=== PATIENT | female | born 1940 | race Two or more races ===

== ENCOUNTER 2018-02-27 21:00 | Inpatient (IN) | payer BC ==
[~2018-02-27] VITALS: Ht 149.9 cm; Wt 41.3 kg
[2018-02-27 21:55] LABS: Basophils # (auto) 0 uL; Basophils % (auto) 0.7 % (0.0-2.0); Eosinophils # (auto) 0.1 uL; Eosinophils % (auto) 1.2 % (0.0-7.0); Hematocrit 30.6 % (36.0-46.0); Hemoglobin 10.2 g/dL (12.2-16.2); Lymphocytes # (auto) 0.9 uL; Lymphocytes % (auto) 14.8 % (10.0-50.0); Mean Corpuscular Hgb Conc. 33.4 g/dL (32.0-36.0); Monocytes # (auto) 0.7 uL; Monocytes % (auto) 10.8 % (0.0-12.0); Neutrophils # (auto) 4.4 uL; Neutrophils % (auto) 72.5 % (37.0-80.0); Platelet Count (auto) 289 10^3/uL (140-450); Red Blood Cells 3.29 10^6/uL (4.0-5.20); Red Cell Distribution Width 15.5 % (11.8-14.3); White Blood Cell 6.1 10^3/uL (4.4-10.8)
[2018-02-27 22:18] LABS: Alkaline Phosphatase 85 U/L (45-117); Bilirubin, Total 0.6 mg/dL (0.2-1.0); INR 1.14 (0.9-1.15); Partial Thromboplastin Time 35.5 sec (23.78-33.04); Prothrombin Time 12.1 sec (9.27-12.13); Total Protein 6.5 g/dL (6.4-8.2)
[2018-02-27] MEDS ORDERED: LEVOFLOXACIN 500MG 100 ML IV ONE (23:00)
[2018-02-27 23:41] LABS: Chloride 105 mmol/L (98-107); Potassium 3.5 mmol/L (3.5-5.1); Sodium 140 mmol/L (136-145)
[2018-02-27 23:42] LABS: Alanine Aminotransferase 16 U/L (13-56); Albumin 2.6 g/dL (3.4-5.0); Anion Gap 9 (5-15); Aspartate Aminotransferase 20 U/L (15-37); BUN/Creatinine Ratio 18.3; Blood Urea Nitrogen 13 mg/dL (7-18); Calcium 7.7 mg/dL (8.5-10.1); Carbon Dioxide 26 mmol/L (21-32); GFR African American 103 mL/min; GFR Non-African American 85 mL/min; Glucose 125 mg/dL (74-106); Magnesium 1.8 mg/dL (1.6-2.6)
[2018-02-28] MEDS ORDERED: FUROSEMIDE 20 MG/2 ML VIAL IV ONE (02:45)
[2018-02-28] MEDS ORDERED: ONDANSETRON HCL 4 MG/2 ML VIAL IV PRN (03:00)
[2018-02-28] MEDS ORDERED: TEMAZEPAM 15 MG CAP PO PRN (03:00)
[2018-02-28] MEDS ORDERED: NITROGLYCERIN 0.4 MG SL TAB SL PRN (03:00)
[2018-02-28] MEDS ORDERED: MORPHINE SULF INJ 2 MG/ML SYRINGE 1ML IV PRN (03:00)
[2018-02-28] MEDS ORDERED: ALBUTEROL SULF 2.5 MG/0.5ML(0.5%) NEB SOLN NEB PRN (03:00)
[2018-02-28] MEDS ORDERED: CALCIUM GLUC 4.65meq/50ml D5AE 50 ML IV ONE (03:00)
[2018-02-28] MEDS ORDERED: guaiFENesin-DM 100/10mg/5ml SYR PO PRN (04:00)
[2018-02-28 06:54] VITALS: BP 150/61
[2018-02-28 07:40] LABS: Urine Bacteria MANY /hpf (None Seen); Urine Blood TRACE /uL (Negative); Urine Mucus FEW (None Seen); Urine Specific Gravity 1.022 (1.001-1.035); Urine WBC 7 /hpf (0 - 5)
[2018-02-28] MEDS ORDERED: LORA-654 PO (08:55)
[2018-02-28] MEDS ORDERED: FAMO-12 PO (08:55)
[2018-02-28] MEDS ORDERED: PROM1SYP4 PO (08:55)
[2018-02-28] MEDS ORDERED: APIX5TAB PO (08:55)
[2018-02-28] MEDS ORDERED: FURO40TA4 PO (08:55)
[2018-02-28] MEDS ORDERED: DILT60TA27 PO (08:55)
[2018-02-28] MEDS ORDERED: ATO40T PO (08:55)
[2018-02-28] MEDS ORDERED: ALEN70TA2 PO (08:55)
[2018-02-28] MEDS ORDERED: FLUT230A2 IN (08:55)
[2018-02-28] MEDS ORDERED: POTA10TA51 PO (08:55)
[2018-02-28] MEDS ORDERED: DOCU-94 PO (08:55)
[2018-02-28] MEDS ORDERED: ENOXAPARIN SOD 40 MG/0.4 ML SYRINGE SC SCH (10:00)
[2018-02-28] MEDS: FAMOTIDINE 20 MG TAB PO SCH ×2 (10:47→21:10)
[2018-02-28] MEDS: FUROSEMIDE 40 MG TAB PO SCH (10:52)
[2018-02-28 10:55] VITALS: BP 127/46
[2018-02-28] MEDS ORDERED: methylPREDNISolone SOD SUCC 40 MG/ML VL IV ONE (11:15)
[2018-02-28] MEDS ORDERED: cefTRIAXone 1GM/10ml IVPUSH 10 ML IV ONE (11:15)
[2018-02-28] MEDS ORDERED: IPRATROPIUM BROM 0.5 MG/2.5ML INH SOL ONE (11:36)
[2018-02-28] MEDS ORDERED: ALBUTEROL SULF 2.5 MG/0.5ML(0.5%) NEB SOLN ONE (11:36)
[2018-02-28] MEDS: IPRATROPIUM BROM 0.5 MG/2.5ML INH SOL NEB SCH ×2 (12:00→18:20)
[2018-02-28] MEDS: ALBUTEROL SULF 2.5 MG/0.5ML(0.5%) NEB SOLN NEB SCH ×2 (12:00→18:20)
[2018-02-28] MEDS ORDERED: AZITHROMYCIN 500MG/ 250ML 250 ML IV ONE (12:15)
[2018-02-28] MEDS: PROMETHAZINE W/CODEINE 5 ML ORAL SYRUP PO PRN ×2 (13:46→17:49)
[2018-02-28 16:56] VITALS: BP 134/68
[2018-02-28] MEDS: BUDESONIDE (INHALATION) 0.5 MG/2 ML NEB NEB SCH (18:21)
[2018-02-28] MEDS: APIXABAN 5 MG TAB PO SCH (21:09)
[2018-02-28] MEDS: ATORVASTATIN 20 MG TAB PO SCH (21:09)
[2018-02-28] MEDS: methylPREDNISolone SOD SUCC 40 MG/ML VL IV SCH (21:09)
[2018-02-28 21:56] VITALS: BP 139/82
[2018-03-01] MEDS: IPRATROPIUM BROM 0.5 MG/2.5ML INH SOL NEB SCH ×5 (00:23→23:06)
[2018-03-01] MEDS: ALBUTEROL SULF 2.5 MG/0.5ML(0.5%) NEB SOLN NEB SCH ×5 (00:23→23:06)
[2018-03-01 04:43] VITALS: BP 117/54
[2018-03-01] MEDS: BUDESONIDE (INHALATION) 0.5 MG/2 ML NEB NEB SCH ×2 (06:20→19:34)
[2018-03-01 07:21] LABS: Basophils # (auto) 0 uL; Basophils % (auto) 0.1 % (0.0-2.0); Eosinophils # (auto) 0 uL; Hematocrit 29.5 % (36.0-46.0); Hemoglobin 9.9 g/dL (12.2-16.2); Lymphocytes # (auto) 0.6 uL; Lymphocytes % (auto) 14.1 % (10.0-50.0); Mean Corpuscular Hemoglobin 30.5 pg (28.0-32.0); Mean Corpuscular Hgb Conc. 33.5 g/dL (32.0-36.0); Mean Corpuscular Volume 91.3 fL (80.0-100.0); Monocytes # (auto) 0.2 uL; Monocytes % (auto) 4.4 % (0.0-12.0); Neutrophils # (auto) 3.3 uL; Neutrophils % (auto) 81.4 % (37.0-80.0); Nucleated Red Blood Cells % 0.1 %; Platelet Count (auto) 291 10^3/uL (140-450); Red Blood Cells 3.23 10^6/uL (4.0-5.20); Red Cell Distribution Width 15.3 % (11.8-14.3); White Blood Cell 4.1 10^3/uL (4.4-10.8)
[2018-03-01 07:31] LABS: Potassium 3.4 mmol/L (3.5-5.1)
[2018-03-01 07:38] LABS: Albumin 2.3 g/dL (3.4-5.0); BUN/Creatinine Ratio 26.2; Calcium 8.5 mg/dL (8.5-10.1)
[2018-03-01 07:41] LABS: Bilirubin, Total 0.4 mg/dL (0.2-1.0); Total Protein 6.3 g/dL (6.4-8.2)
[2018-03-01 08:00] VITALS: BP 127/46
[2018-03-01 09:00] VITALS: BP 123/51
[2018-03-01] MEDS ORDERED: LEVOFLOXACIN 750MG 150 ML IV SCH (10:00)
[2018-03-01] MEDS: APIXABAN 5 MG TAB PO SCH ×2 (10:01→21:30)
[2018-03-01] MEDS: cefTRIAXone 1GM/10ml IVPUSH 10 ML IV SCH (10:02)
[2018-03-01] MEDS: AZITHROMYCIN 500MG/ 250ML 250 ML IV SCH (10:03)
[2018-03-01] MEDS: FUROSEMIDE 40 MG TAB PO SCH (10:03)
[2018-03-01] MEDS: methylPREDNISolone SOD SUCC 40 MG/ML VL IV SCH ×2 (10:03→21:30)
[2018-03-01] MEDS: PROMETHAZINE W/CODEINE 5 ML ORAL SYRUP PO PRN ×2 (10:04→21:30)
[2018-03-01] MEDS: FAMOTIDINE 20 MG TAB PO SCH ×2 (10:04→21:30)
[2018-03-01] MEDS ORDERED: POTASSIUM EFFERVESENT TAB 25 MEQ PO ONE (11:00)
[2018-03-01] MEDS ORDERED: FUROSEMIDE 20 MG/2 ML VIAL IV ONE (11:00)
[2018-03-01 13:00] VITALS: BP 126/54
[2018-03-01 17:00] VITALS: BP 120/50
[2018-03-01] MEDS: diphenhdrAMINE HCL 25 MG CAP PO PRN ×2 (17:03→17:05)
[2018-03-01] MEDS: ACETAMINOPHEN 325 MG TAB PO PRN (21:30)
[2018-03-01] MEDS: ATORVASTATIN 20 MG TAB PO SCH (21:30)
[2018-03-01 21:49] VITALS: BP 129/76
[2018-03-02] MEDS ORDERED: LORazepam 0.5 MG TAB PO PRN (00:45)
[2018-03-02] MEDS: PROMETHAZINE W/CODEINE 5 ML ORAL SYRUP PO PRN ×5 (01:40→22:37)
[2018-03-02 05:05] VITALS: BP 102/55
[2018-03-02] MEDS: IPRATROPIUM BROM 0.5 MG/2.5ML INH SOL NEB SCH ×3 (06:00→19:25)
[2018-03-02] MEDS: ALBUTEROL SULF 2.5 MG/0.5ML(0.5%) NEB SOLN NEB SCH ×3 (06:00→19:25)
[2018-03-02 07:00] LABS: BUN/Creatinine Ratio 22.2; Calcium 7.9 mg/dL (8.5-10.1); Potassium 3.9 mmol/L (3.5-5.1)
[2018-03-02 08:00] VITALS: BP 139/69
[2018-03-02] MEDS: cefTRIAXone 1GM/10ml IVPUSH 10 ML IV SCH (08:26)
[2018-03-02] MEDS: methylPREDNISolone SOD SUCC 40 MG/ML VL IV SCH ×2 (08:28→21:37)
[2018-03-02] MEDS: ACETAMINOPHEN 325 MG TAB PO PRN (08:29)
[2018-03-02] MEDS: APIXABAN 5 MG TAB PO SCH ×2 (08:29→21:36)
[2018-03-02] MEDS: AZITHROMYCIN 500MG/ 250ML 250 ML IV SCH (08:29)
[2018-03-02] MEDS: FUROSEMIDE 40 MG TAB PO SCH (08:30)
[2018-03-02] MEDS: FAMOTIDINE 20 MG TAB PO SCH ×2 (08:30→21:36)
[2018-03-02 08:38] VITALS: BP 139/69
[2018-03-02] MEDS: BUDESONIDE (INHALATION) 0.5 MG/2 ML NEB NEB SCH ×2 (11:35→19:25)
[2018-03-02 13:00] VITALS: BP 140/63
[2018-03-02] MEDS ORDERED: ACETAMINOPHEN 325 MG TAB PO PRN (16:15)
[2018-03-02 16:56] VITALS: BP 119/59
[2018-03-02 17:03] LABS: Urine Bacteria NONE SEEN /hpf (None Seen); Urine Blood Negative /uL (Negative); Urine Specific Gravity 1.005 (1.001-1.035); Urine WBC 1 /hpf (0 - 5)
[2018-03-02] MEDS: ATORVASTATIN 20 MG TAB PO SCH (21:36)
[2018-03-02 21:37] VITALS: BP 154/68
[2018-03-03] MEDS: IPRATROPIUM BROM 0.5 MG/2.5ML INH SOL NEB SCH ×4 (00:30→18:44)
[2018-03-03] MEDS: ALBUTEROL SULF 2.5 MG/0.5ML(0.5%) NEB SOLN NEB SCH ×4 (00:30→18:44)
[2018-03-03] MEDS: HYDROcodone-ACET 5/325MG TAB PO PRN ×3 (02:15→14:49)
[2018-03-03 05:06] VITALS: BP 132/77
[2018-03-03] MEDS: BUDESONIDE (INHALATION) 0.5 MG/2 ML NEB NEB SCH ×2 (06:21→18:45)
[2018-03-03] MEDS: PROMETHAZINE W/CODEINE 5 ML ORAL SYRUP PO PRN ×4 (06:22→21:45)
[2018-03-03 06:27] VITALS: BP 132/77
[2018-03-03 06:43] LABS: Basophils # (auto) 0 uL; Basophils % (auto) 0.1 % (0.0-2.0); Eosinophils # (auto) 0 uL; Hematocrit 27.7 % (36.0-46.0); Hemoglobin 9.4 g/dL (12.2-16.2); Lymphocytes # (auto) 0.4 uL; Lymphocytes % (auto) 4.2 % (10.0-50.0); Mean Corpuscular Hemoglobin 30.9 pg (28.0-32.0); Mean Corpuscular Hgb Conc. 33.8 g/dL (32.0-36.0); Mean Corpuscular Volume 91.2 fL (80.0-100.0); Monocytes # (auto) 0.4 uL; Monocytes % (auto) 4.6 % (0.0-12.0); Neutrophils # (auto) 8.2 uL; Neutrophils % (auto) 91.1 % (37.0-80.0); Platelet Count (auto) 345 10^3/uL (140-450); Red Blood Cells 3.04 10^6/uL (4.0-5.20); Red Cell Distribution Width 15.1 % (11.8-14.3)
[2018-03-03 06:55] LABS: BUN/Creatinine Ratio 20.8; Calcium 7.8 mg/dL (8.5-10.1); Potassium 3.7 mmol/L (3.5-5.1)
[2018-03-03 09:00] VITALS: BP 144/72
[2018-03-03] MEDS: APIXABAN 5 MG TAB PO SCH ×2 (09:35→21:44)
[2018-03-03] MEDS: FUROSEMIDE 40 MG TAB PO SCH (09:35)
[2018-03-03] MEDS: FAMOTIDINE 20 MG TAB PO SCH ×2 (09:35→21:45)
[2018-03-03] MEDS: methylPREDNISolone SOD SUCC 40 MG/ML VL IV SCH ×2 (09:35→21:44)
[2018-03-03] MEDS: AZITHROMYCIN 500MG/ 250ML 250 ML IV SCH (09:35)
[2018-03-03] MEDS: cefTRIAXone 1GM/10ml IVPUSH 10 ML IV SCH (09:36)
[2018-03-03 13:00] VITALS: BP 149/66
[2018-03-03 17:00] VITALS: BP 153/60
[2018-03-03 20:05] VITALS: BP 142/72
[2018-03-03] MEDS: ATORVASTATIN 20 MG TAB PO SCH (21:44)
[2018-03-04] VITALS (7 sets, daily range): BP systolic 111–146; BP diastolic 31–96
[2018-03-04] MEDS: ALBUTEROL SULF 2.5 MG/0.5ML(0.5%) NEB SOLN NEB SCH ×4 (00:37→18:54)
[2018-03-04] MEDS: IPRATROPIUM BROM 0.5 MG/2.5ML INH SOL NEB SCH ×4 (00:37→18:54)
[2018-03-04] MEDS ORDERED: LORazepam 2MG/ML-1ML VIAL IV PRN (01:15)
[2018-03-04] MEDS: PROMETHAZINE W/CODEINE 5 ML ORAL SYRUP PO PRN ×2 (02:08→14:31)
[2018-03-04] MEDS ORDERED: IOHEXOL 300 MG/ML 100ML BOTTLE IJ ONE (09:05)
[2018-03-04] MEDS: BUDESONIDE (INHALATION) 0.5 MG/2 ML NEB NEB SCH ×2 (10:00→18:54)
[2018-03-04] MEDS: cefTRIAXone 1GM/10ml IVPUSH 10 ML IV SCH (10:24)
[2018-03-04] MEDS: APIXABAN 5 MG TAB PO SCH ×2 (10:25→20:20)
[2018-03-04] MEDS: FUROSEMIDE 40 MG TAB PO SCH (10:25)
[2018-03-04] MEDS: methylPREDNISolone SOD SUCC 40 MG/ML VL IV SCH ×2 (10:25→20:20)
[2018-03-04] MEDS: FAMOTIDINE 20 MG TAB PO SCH ×2 (10:25→20:20)
[2018-03-04] MEDS ORDERED: VANCOMYCIN PER PHARMACY 0 MG IV SCH (11:15)
[2018-03-04] MEDS: PIPERACILLIN-TAZOB 3.375GM 100 ML IV SCH ×2 (11:49→20:21)
[2018-03-04] MEDS: LORazepam 2MG/ML-1ML VIAL IV PRN (13:12)
[2018-03-04] MEDS: VANCOMYCIN 500 MG in D5W 5% 100 ML IV SCH (14:31)
[2018-03-04] MEDS: ATORVASTATIN 20 MG TAB PO SCH (20:21)
[2018-03-05] VITALS (7 sets, daily range): BP systolic 107–138; BP diastolic 60–87
[2018-03-05] MEDS: LORazepam 2MG/ML-1ML VIAL IV PRN (00:15)
[2018-03-05] MEDS: ALBUTEROL SULF 2.5 MG/0.5ML(0.5%) NEB SOLN NEB SCH ×4 (00:34→18:31)
[2018-03-05] MEDS: IPRATROPIUM BROM 0.5 MG/2.5ML INH SOL NEB SCH ×4 (00:34→18:31)
[2018-03-05] MEDS: PROMETHAZINE W/CODEINE 5 ML ORAL SYRUP PO PRN ×2 (02:48→10:49)
[2018-03-05] MEDS: PIPERACILLIN-TAZOB 3.375GM 100 ML IV SCH ×3 (03:48→20:17)
[2018-03-05] MEDS: BUDESONIDE (INHALATION) 0.5 MG/2 ML NEB NEB SCH ×2 (06:07→21:10)
[2018-03-05] MEDS: FUROSEMIDE 40 MG TAB PO SCH (09:46)
[2018-03-05] MEDS: methylPREDNISolone SOD SUCC 40 MG/ML VL IV SCH ×2 (09:46→22:07)
[2018-03-05] MEDS: FAMOTIDINE 20 MG TAB PO SCH ×2 (09:46→22:08)
[2018-03-05] MEDS: APIXABAN 5 MG TAB PO SCH ×2 (09:46→22:07)
[2018-03-05] MEDS: ALPRAZolam 0.25 MG TAB PO SCH ×2 (10:55→22:08)
[2018-03-05] MEDS: guaiFENesin 200 MG/10 ML UD PO SCH ×3 (11:59→22:11)
[2018-03-05] MEDS: VANCOMYCIN 500 MG in D5W 5% 100 ML IV SCH (17:04)
[2018-03-05] MEDS: ATORVASTATIN 20 MG TAB PO SCH (22:10)
[2018-03-06 03:44] VITALS: BP 128/71
[2018-03-06] MEDS: PIPERACILLIN-TAZOB 3.375GM 100 ML IV SCH ×3 (04:10→20:18)
[2018-03-06 05:58] LABS: Basophils # (auto) 0 uL; Basophils % (auto) 0.1 % (0.0-2.0); Eosinophils # (auto) 0 uL; Hematocrit 28.3 % (36.0-46.0); Hemoglobin 9.8 g/dL (12.2-16.2); Lymphocytes # (auto) 0.4 uL; Lymphocytes % (auto) 4.5 % (10.0-50.0); Mean Corpuscular Hemoglobin 30.9 pg (28.0-32.0); Mean Corpuscular Hgb Conc. 34.5 g/dL (32.0-36.0); Mean Corpuscular Volume 89.6 fL (80.0-100.0); Monocytes # (auto) 0.4 uL; Monocytes % (auto) 3.9 % (0.0-12.0); Neutrophils # (auto) 9.1 uL; Neutrophils % (auto) 91.5 % (37.0-80.0); Nucleated Red Blood Cells % 0.1 %; Platelet Count (auto) 433 10^3/uL (140-450); Red Blood Cells 3.16 10^6/uL (4.0-5.20); Red Cell Distribution Width 15.2 % (11.8-14.3)
[2018-03-06] MEDS: guaiFENesin 200 MG/10 ML UD PO SCH ×4 (06:02→22:53)
[2018-03-06 06:16] LABS: BUN/Creatinine Ratio 31.2; Calcium 8.1 mg/dL (8.5-10.1)
[2018-03-06 06:19] LABS: Potassium 2.7 mmol/L (3.5-5.1)
[2018-03-06] MEDS ORDERED: POTASSIUM CHL 20 Meq TABLET PO ONE ×2 (06:45→12:00)
[2018-03-06] MEDS: ALBUTEROL SULF 2.5 MG/0.5ML(0.5%) NEB SOLN NEB SCH ×4 (06:46→18:46)
[2018-03-06] MEDS: BUDESONIDE (INHALATION) 0.5 MG/2 ML NEB NEB SCH ×2 (06:47→18:47)
[2018-03-06] MEDS: IPRATROPIUM BROM 0.5 MG/2.5ML INH SOL NEB SCH ×4 (06:47→18:46)
[2018-03-06 08:00] VITALS: BP 121/72
[2018-03-06] MEDS: APIXABAN 5 MG TAB PO SCH (10:00)
[2018-03-06 10:03] LABS: Albumin 2.5 g/dL (3.4-5.0); Bilirubin, Total 0.5 mg/dL (0.2-1.0); Total Protein 6.4 g/dL (6.4-8.2)
[2018-03-06] MEDS: FUROSEMIDE 40 MG TAB PO SCH (10:26)
[2018-03-06] MEDS: methylPREDNISolone SOD SUCC 40 MG/ML VL IV SCH ×2 (10:26→22:29)
[2018-03-06] MEDS: FAMOTIDINE 20 MG TAB PO SCH ×2 (10:27→22:30)
[2018-03-06] MEDS: ALPRAZolam 0.25 MG TAB PO SCH ×2 (10:27→22:29)
[2018-03-06 10:34] LABS: Albumin 2.5 g/dL (3.4-5.0); BUN/Creatinine Ratio 24.4; Calcium 7.8 mg/dL (8.5-10.1)
[2018-03-06 10:37] LABS: Bilirubin, Total 0.4 mg/dL (0.2-1.0); Potassium 2.8 mmol/L (3.5-5.1); Total Protein 6.2 g/dL (6.4-8.2)
[2018-03-06 11:47] VITALS: BP 136/78
[2018-03-06] MEDS ORDERED: HYDROcodone-ACET 5/325MG TAB PO PRN (12:00)
[2018-03-06] MEDS: Glucerna Carbsteady SHAKE Vanilla 8oz PO SCH ×2 (12:00→18:19)
[2018-03-06 12:08] VITALS: BP 136/78
[2018-03-06] MEDS: POTASSIUM CHL 20 Meq TABLET PO SCH ×2 (12:10→14:50)
[2018-03-06] MEDS: VANCOMYCIN 500 MG in D5W 5% 100 ML IV SCH (14:50)
[2018-03-06 15:50] VITALS: BP 146/71
[2018-03-06 19:50] VITALS: BP 134/65
[2018-03-06] MEDS: ATORVASTATIN 20 MG TAB PO SCH (22:30)
[2018-03-07] VITALS (8 sets, daily range): BP systolic 119–165; BP diastolic 55–82
[2018-03-07] MEDS: IPRATROPIUM BROM 0.5 MG/2.5ML INH SOL NEB SCH ×4 (00:34→18:55)
[2018-03-07] MEDS: ALBUTEROL SULF 2.5 MG/0.5ML(0.5%) NEB SOLN NEB SCH ×5 (00:34→18:55)
[2018-03-07] MEDS: PROMETHAZINE W/CODEINE 5 ML ORAL SYRUP PO PRN ×2 (04:11→11:03)
[2018-03-07] MEDS: PIPERACILLIN-TAZOB 3.375GM 100 ML IV SCH ×3 (04:40→19:38)
[2018-03-07 05:42] LABS: Basophils # (auto) 0 uL; Eosinophils # (auto) 0 uL; Hematocrit 27.8 % (36.0-46.0); Hemoglobin 9.4 g/dL (12.2-16.2); Lymphocytes # (auto) 0.4 uL; Lymphocytes % (auto) 3.7 % (10.0-50.0); Mean Corpuscular Hemoglobin 30.8 pg (28.0-32.0); Mean Corpuscular Hgb Conc. 33.9 g/dL (32.0-36.0); Mean Corpuscular Volume 90.8 fL (80.0-100.0); Monocytes # (auto) 0.3 uL; Monocytes % (auto) 3.1 % (0.0-12.0); Neutrophils # (auto) 8.9 uL; Neutrophils % (auto) 93.2 % (37.0-80.0); Platelet Count (auto) 423 10^3/uL (140-450); Red Blood Cells 3.06 10^6/uL (4.0-5.20); Red Cell Distribution Width 15.1 % (11.8-14.3); White Blood Cell 9.5 10^3/uL (4.4-10.8)
[2018-03-07 05:57] LABS: Albumin 2.4 g/dL (3.4-5.0); BUN/Creatinine Ratio 31.6; Calcium 8.1 mg/dL (8.5-10.1); Magnesium 2.5 mg/dL (1.6-2.6); Potassium 4.2 mmol/L (3.5-5.1)
[2018-03-07 06:07] LABS: Bilirubin, Total 0.3 mg/dL (0.2-1.0); Total Protein 6.1 g/dL (6.4-8.2)
[2018-03-07] MEDS: guaiFENesin 200 MG/10 ML UD PO SCH ×5 (06:14→21:44)
[2018-03-07] MEDS: BUDESONIDE (INHALATION) 0.5 MG/2 ML NEB NEB SCH ×2 (06:21→18:55)
[2018-03-07] MEDS: Glucerna Carbsteady SHAKE Vanilla 8oz PO SCH ×3 (08:00→18:08)
[2018-03-07] MEDS: ALPRAZolam 0.25 MG TAB PO SCH ×2 (10:00→21:44)
[2018-03-07] MEDS: methylPREDNISolone SOD SUCC 40 MG/ML VL IV SCH ×2 (10:44→21:44)
[2018-03-07] MEDS: FUROSEMIDE 40 MG TAB PO SCH (10:44)
[2018-03-07] MEDS: FAMOTIDINE 20 MG TAB PO SCH ×2 (10:44→21:44)
[2018-03-07] MEDS ORDERED: VANCOMYCIN 500 MG in D5W 5% 100 ML IV ONE (14:00)
[2018-03-07] MEDS: VANCOMYCIN 500 MG in D5W 5% 100 ML IV SCH (14:50)
[2018-03-07] MEDS: LORazepam 2MG/ML-1ML VIAL IV PRN (15:19)
[2018-03-07] MEDS: ATORVASTATIN 20 MG TAB PO SCH (21:44)
[2018-03-08] MEDS: PROMETHAZINE W/CODEINE 5 ML ORAL SYRUP PO PRN ×2 (00:49→06:26)
[2018-03-08] MEDS: ALBUTEROL SULF 2.5 MG/0.5ML(0.5%) NEB SOLN NEB SCH ×4 (00:56→19:07)
[2018-03-08] MEDS: IPRATROPIUM BROM 0.5 MG/2.5ML INH SOL NEB SCH ×4 (00:56→19:10)
[2018-03-08] MEDS: VANCOMYCIN 500 MG in D5W 5% 100 ML IV SCH ×2 (02:57→15:36)
[2018-03-08 04:18] VITALS: BP 136/76
[2018-03-08] MEDS: PIPERACILLIN-TAZOB 3.375GM 100 ML IV SCH ×3 (04:20→19:50)
[2018-03-08] MEDS: guaiFENesin 200 MG/10 ML UD PO SCH ×4 (05:30→21:36)
[2018-03-08 05:37] LABS: Basophils # (auto) 0 uL; Eosinophils # (auto) 0 uL; Hemoglobin 9.6 g/dL (12.2-16.2); Lymphocytes # (auto) 0.2 uL; Lymphocytes % (auto) 2.1 % (10.0-50.0); Mean Corpuscular Hemoglobin 30.3 pg (28.0-32.0); Mean Corpuscular Hgb Conc. 33.2 g/dL (32.0-36.0); Mean Corpuscular Volume 91.3 fL (80.0-100.0); Monocytes # (auto) 0.3 uL; Monocytes % (auto) 3.2 % (0.0-12.0); Neutrophils % (auto) 94.7 % (37.0-80.0); Nucleated Red Blood Cells % 0.1 %; Platelet Count (auto) 451 10^3/uL (140-450); Red Blood Cells 3.17 10^6/uL (4.0-5.20); Red Cell Distribution Width 15.2 % (11.8-14.3); White Blood Cell 10.6 10^3/uL (4.4-10.8)
[2018-03-08 05:51] LABS: BUN/Creatinine Ratio 34.2; Calcium 8.3 mg/dL (8.5-10.1)
[2018-03-08] MEDS ORDERED: DEXTROSE (50%) 50ML SYRG IV PRN (06:15)
[2018-03-08] MEDS: ACCU-CHEK COMFORT CURVE STRIP VI SCH ×4 (06:26→21:37)
[2018-03-08] MEDS: InsuLIN REG 1unit/0.01ml Soln (100units/ml) SC SCH ×4 (06:26→21:42)
[2018-03-08] MEDS: Glucerna Carbsteady SHAKE Vanilla 8oz PO SCH ×3 (08:00→17:36)
[2018-03-08] MEDS: ALPRAZolam 0.25 MG TAB PO SCH ×2 (10:00→21:36)
[2018-03-08] MEDS: BUDESONIDE (INHALATION) 0.5 MG/2 ML NEB NEB SCH ×2 (11:11→19:07)
[2018-03-08] MEDS: predniSONE 20 MG TAB PO SCH (11:12)
[2018-03-08] MEDS: FAMOTIDINE 20 MG TAB PO SCH ×2 (11:13→21:36)
[2018-03-08] MEDS: FUROSEMIDE 40 MG TAB PO SCH (11:13)
[2018-03-08 12:00] VITALS: BP 129/63
[2018-03-08 15:55] VITALS: BP 118/94
[2018-03-08 20:00] VITALS: BP 126/50
[2018-03-08 20:08] VITALS: BP 126/50
[2018-03-08] MEDS: ATORVASTATIN 20 MG TAB PO SCH (21:36)
[2018-03-09] VITALS (7 sets, daily range): BP systolic 121–149; BP diastolic 33–69
[2018-03-09] MEDS: ALBUTEROL SULF 2.5 MG/0.5ML(0.5%) NEB SOLN NEB SCH ×4 (00:23→18:49)
[2018-03-09] MEDS: IPRATROPIUM BROM 0.5 MG/2.5ML INH SOL NEB SCH ×4 (00:23→18:49)
[2018-03-09] MEDS: VANCOMYCIN 500 MG in D5W 5% 100 ML IV SCH ×2 (03:09→14:41)
[2018-03-09] MEDS: PIPERACILLIN-TAZOB 3.375GM 100 ML IV SCH (04:00)
[2018-03-09 05:52] LABS: Basophils # (auto) 0 uL; Eosinophils # (auto) 0 uL; Eosinophils % (auto) 0.1 % (0.0-7.0); Hematocrit 28.7 % (36.0-46.0); Hemoglobin 9.4 g/dL (12.2-16.2); Lymphocytes # (auto) 0.8 uL; Lymphocytes % (auto) 6.5 % (10.0-50.0); Mean Corpuscular Hemoglobin 29.8 pg (28.0-32.0); Mean Corpuscular Hgb Conc. 32.9 g/dL (32.0-36.0); Mean Corpuscular Volume 90.8 fL (80.0-100.0); Monocytes % (auto) 7.9 % (0.0-12.0); Neutrophils # (auto) 10.5 uL; Neutrophils % (auto) 85.5 % (37.0-80.0); Platelet Count (auto) 439 10^3/uL (140-450); Red Blood Cells 3.16 10^6/uL (4.0-5.20); Red Cell Distribution Width 15.2 % (11.8-14.3); White Blood Cell 12.3 10^3/uL (4.4-10.8)
[2018-03-09 06:01] LABS: BUN/Creatinine Ratio 34.2; Potassium 3.5 mmol/L (3.5-5.1)
[2018-03-09] MEDS: guaiFENesin 200 MG/10 ML UD PO SCH ×4 (06:14→22:24)
[2018-03-09] MEDS: InsuLIN REG 1unit/0.01ml Soln (100units/ml) SC SCH ×4 (06:36→22:00)
[2018-03-09] MEDS: ACCU-CHEK COMFORT CURVE STRIP VI SCH ×4 (06:36→22:00)
[2018-03-09] MEDS: Glucerna Carbsteady SHAKE Vanilla 8oz PO SCH ×3 (08:00→17:42)
[2018-03-09] MEDS: PROMETHAZINE W/CODEINE 5 ML ORAL SYRUP PO PRN ×2 (08:18→23:42)
[2018-03-09] MEDS: predniSONE 20 MG TAB PO SCH (10:11)
[2018-03-09] MEDS: FAMOTIDINE 20 MG TAB PO SCH ×2 (10:11→22:24)
[2018-03-09] MEDS: ALPRAZolam 0.25 MG TAB PO SCH ×2 (10:11→22:24)
[2018-03-09] MEDS: FUROSEMIDE 40 MG TAB PO SCH (10:11)
[2018-03-09] MEDS ORDERED: HYDROcodone-ACET 5/325MG TAB PO PRN (11:15)
[2018-03-09] MEDS: BUDESONIDE (INHALATION) 0.5 MG/2 ML NEB NEB SCH ×2 (12:13→18:50)
[2018-03-09] MEDS: cefTRIAXone 1GM/10ml IVPUSH 10 ML IV SCH (17:42)
[2018-03-09] MEDS: ATORVASTATIN 20 MG TAB PO SCH (22:25)
[2018-03-10 00:05] VITALS: BP_SYST 120
[2018-03-10] MEDS: IPRATROPIUM BROM 0.5 MG/2.5ML INH SOL NEB SCH ×5 (00:18→23:44)
[2018-03-10] MEDS: ALBUTEROL SULF 2.5 MG/0.5ML(0.5%) NEB SOLN NEB SCH ×5 (00:18→23:44)
[2018-03-10] MEDS: VANCOMYCIN 500 MG in D5W 5% 100 ML IV SCH ×2 (03:24→15:06)
[2018-03-10] MEDS: guaiFENesin 200 MG/10 ML UD PO SCH ×4 (06:04→21:23)
[2018-03-10] MEDS: InsuLIN REG 1unit/0.01ml Soln (100units/ml) SC SCH ×4 (06:54→21:24)
[2018-03-10] MEDS: ACCU-CHEK COMFORT CURVE STRIP VI SCH ×4 (06:54→21:24)
[2018-03-10] MEDS: BUDESONIDE (INHALATION) 0.5 MG/2 ML NEB NEB SCH ×2 (07:34→19:40)
[2018-03-10] MEDS: Glucerna Carbsteady SHAKE Vanilla 8oz PO SCH ×3 (08:20→17:59)
[2018-03-10] MEDS: FUROSEMIDE 40 MG TAB PO SCH (10:41)
[2018-03-10] MEDS: ALPRAZolam 0.25 MG TAB PO SCH ×2 (10:42→21:23)
[2018-03-10] MEDS: predniSONE 20 MG TAB PO SCH (10:42)
[2018-03-10] MEDS: FAMOTIDINE 20 MG TAB PO SCH ×2 (10:42→21:23)
[2018-03-10 11:51] VITALS: BP 132/74
[2018-03-10] MEDS: PROMETHAZINE W/CODEINE 5 ML ORAL SYRUP PO PRN (15:14)
[2018-03-10 15:50] VITALS: BP 134/77
[2018-03-10] MEDS: cefTRIAXone 1GM/10ml IVPUSH 10 ML IV SCH (17:59)
[2018-03-10 19:45] VITALS: BP 115/50
[2018-03-10] MEDS: ATORVASTATIN 20 MG TAB PO SCH (21:23)
[2018-03-11] VITALS: BP 131/82
[2018-03-11] MEDS: VANCOMYCIN 500 MG in D5W 5% 100 ML IV SCH ×2 (03:50→15:06)
[2018-03-11 04:00] VITALS: BP 117/64
[2018-03-11 05:55] LABS: Basophils # (auto) 0 uL; Eosinophils # (auto) 0 uL; Eosinophils % (auto) 0.1 % (0.0-7.0); Hematocrit 29.8 % (36.0-46.0); Hemoglobin 10.1 g/dL (12.2-16.2); Lymphocytes # (auto) 1.1 uL; Lymphocytes % (auto) 7.6 % (10.0-50.0); Mean Corpuscular Hemoglobin 30.5 pg (28.0-32.0); Mean Corpuscular Hgb Conc. 33.8 g/dL (32.0-36.0); Mean Corpuscular Volume 90.2 fL (80.0-100.0); Monocytes # (auto) 1.1 uL; Neutrophils % (auto) 84.3 % (37.0-80.0); Platelet Count (auto) 445 10^3/uL (140-450); Red Blood Cells 3.31 10^6/uL (4.0-5.20); Red Cell Distribution Width 15.1 % (11.8-14.3); White Blood Cell 14.2 10^3/uL (4.4-10.8)
[2018-03-11 06:04] LABS: BUN/Creatinine Ratio 31.6; Potassium 3.1 mmol/L (3.5-5.1)
[2018-03-11] MEDS: guaiFENesin 200 MG/10 ML UD PO SCH ×4 (06:31→21:20)
[2018-03-11] MEDS: ACCU-CHEK COMFORT CURVE STRIP VI SCH ×4 (06:31→21:21)
[2018-03-11] MEDS: InsuLIN REG 1unit/0.01ml Soln (100units/ml) SC SCH ×4 (06:31→21:21)
[2018-03-11] MEDS ORDERED: POTASSIUM CHL 20 Meq TABLET PO ONE (07:00)
[2018-03-11] MEDS: ALBUTEROL SULF 2.5 MG/0.5ML(0.5%) NEB SOLN NEB SCH ×3 (07:15→18:52)
[2018-03-11] MEDS: IPRATROPIUM BROM 0.5 MG/2.5ML INH SOL NEB SCH ×3 (07:15→18:52)
[2018-03-11] MEDS: BUDESONIDE (INHALATION) 0.5 MG/2 ML NEB NEB SCH ×2 (07:16→18:53)
[2018-03-11 08:00] VITALS: BP 127/62
[2018-03-11] MEDS: Glucerna Carbsteady SHAKE Vanilla 8oz PO SCH ×3 (08:00→17:52)
[2018-03-11] MEDS: ALPRAZolam 0.25 MG TAB PO SCH ×2 (10:12→21:20)
[2018-03-11] MEDS: FAMOTIDINE 20 MG TAB PO SCH ×2 (10:12→21:20)
[2018-03-11] MEDS: FUROSEMIDE 40 MG TAB PO SCH (10:12)
[2018-03-11] MEDS: predniSONE 20 MG TAB PO SCH (10:12)
[2018-03-11 11:53] VITALS: BP 133/72
[2018-03-11] MEDS ORDERED: APIXABAN 2.5 MG TAB PO SCH (12:18)
[2018-03-11 15:58] VITALS: BP 133/74
[2018-03-11] MEDS: cefTRIAXone 1GM/10ml IVPUSH 10 ML IV SCH (17:52)
[2018-03-11 19:48] VITALS: BP 121/52
[2018-03-11] MEDS: ATORVASTATIN 20 MG TAB PO SCH (21:20)
[2018-03-11] MEDS: PROMETHAZINE W/CODEINE 5 ML ORAL SYRUP PO PRN (23:44)
[2018-03-12] VITALS: BP 135/74
[2018-03-12] MEDS: VANCOMYCIN 500 MG in D5W 5% 100 ML IV SCH (02:43)
[2018-03-12 04:00] VITALS: BP 135/49
[2018-03-12 05:32] LABS: Basophils # (auto) 0 uL; Eosinophils # (auto) 0 uL; Hematocrit 29.9 % (36.0-46.0); Hemoglobin 9.9 g/dL (12.2-16.2); Lymphocytes % (auto) 6.8 % (10.0-50.0); Mean Corpuscular Hemoglobin 30.7 pg (28.0-32.0); Mean Corpuscular Hgb Conc. 32.9 g/dL (32.0-36.0); Mean Corpuscular Volume 93.1 fL (80.0-100.0); Monocytes # (auto) 1.1 uL; Monocytes % (auto) 7.5 % (0.0-12.0); Neutrophils % (auto) 85.7 % (37.0-80.0); Platelet Count (auto) 441 10^3/uL (140-450); Red Blood Cells 3.21 10^6/uL (4.0-5.20); Red Cell Distribution Width 15.5 % (11.8-14.3); White Blood Cell 15.1 10^3/uL (4.4-10.8)
[2018-03-12 05:48] LABS: BUN/Creatinine Ratio 38.6; Potassium 3.1 mmol/L (3.5-5.1)
[2018-03-12] MEDS: InsuLIN REG 1unit/0.01ml Soln (100units/ml) SC SCH ×4 (05:48→22:05)
[2018-03-12] MEDS: ACCU-CHEK COMFORT CURVE STRIP VI SCH ×4 (05:48→22:05)
[2018-03-12] MEDS: guaiFENesin 200 MG/10 ML UD PO SCH ×4 (05:49→21:56)
[2018-03-12] MEDS: IPRATROPIUM BROM 0.5 MG/2.5ML INH SOL NEB SCH ×4 (06:54→19:22)
[2018-03-12] MEDS: BUDESONIDE (INHALATION) 0.5 MG/2 ML NEB NEB SCH ×2 (06:54→19:23)
[2018-03-12] MEDS: ALBUTEROL SULF 2.5 MG/0.5ML(0.5%) NEB SOLN NEB SCH ×4 (06:54→19:22)
[2018-03-12] MEDS: Glucerna Carbsteady SHAKE Vanilla 8oz PO SCH ×3 (08:00→17:52)
[2018-03-12] MEDS: predniSONE 20 MG TAB PO SCH (10:15)
[2018-03-12] MEDS: ALPRAZolam 0.25 MG TAB PO SCH ×2 (10:15→21:56)
[2018-03-12] MEDS: FAMOTIDINE 20 MG TAB PO SCH ×2 (10:15→21:56)
[2018-03-12] MEDS: FUROSEMIDE 40 MG TAB PO SCH (10:16)
[2018-03-12] MEDS ORDERED: LEVOFLOXACIN 500 MG TAB PO ONE (11:15)
[2018-03-12] MEDS ORDERED: POTASSIUM EFFERVESENT TAB 25 MEQ PO ONE (11:15)
[2018-03-12 12:00] VITALS: BP 132/76
[2018-03-12 17:30] VITALS: BP 118/65
[2018-03-12] MEDS: PROMETHAZINE W/CODEINE 5 ML ORAL SYRUP PO PRN (20:44)
[2018-03-12 21:46] VITALS: BP 142/67
[2018-03-12] MEDS: ATORVASTATIN 20 MG TAB PO SCH (21:56)
[2018-03-13] MEDS: LORazepam 2MG/ML-1ML VIAL IV PRN (02:43)
[2018-03-13] MEDS: PROMETHAZINE W/CODEINE 5 ML ORAL SYRUP PO PRN ×2 (02:44→10:42)
[2018-03-13 02:56] VITALS: BP 142/67
[2018-03-13 04:55] VITALS: BP 116/65
[2018-03-13] MEDS: ALBUTEROL SULF 2.5 MG/0.5ML(0.5%) NEB SOLN NEB SCH ×4 (06:07→18:57)
[2018-03-13] MEDS: IPRATROPIUM BROM 0.5 MG/2.5ML INH SOL NEB SCH ×4 (06:08→18:57)
[2018-03-13] MEDS: BUDESONIDE (INHALATION) 0.5 MG/2 ML NEB NEB SCH ×2 (06:08→18:57)
[2018-03-13] MEDS: ACCU-CHEK COMFORT CURVE STRIP VI SCH ×3 (06:27→17:21)
[2018-03-13] MEDS: InsuLIN REG 1unit/0.01ml Soln (100units/ml) SC SCH ×3 (06:27→17:20)
[2018-03-13] MEDS: guaiFENesin 200 MG/10 ML UD PO SCH ×3 (06:27→18:55)
[2018-03-13 07:03] LABS: Basophils # (auto) 0 uL; Basophils % (auto) 0.1 % (0.0-2.0); Eosinophils # (auto) 0 uL; Eosinophils % (auto) 0.1 % (0.0-7.0); Hematocrit 28.8 % (36.0-46.0); Hemoglobin 9.7 g/dL (12.2-16.2); Mean Corpuscular Hemoglobin 30.4 pg (28.0-32.0); Mean Corpuscular Hgb Conc. 33.7 g/dL (32.0-36.0); Mean Corpuscular Volume 90.2 fL (80.0-100.0); Monocytes % (auto) 7.8 % (0.0-12.0); Neutrophils # (auto) 11.1 uL; Platelet Count (auto) 392 10^3/uL (140-450); Red Cell Distribution Width 15.3 % (11.8-14.3); White Blood Cell 13.1 10^3/uL (4.4-10.8)
[2018-03-13 07:20] LABS: Albumin 2.7 g/dL (3.4-5.0); BUN/Creatinine Ratio 31.7; Bilirubin, Total 0.3 mg/dL (0.2-1.0); Calcium 8.2 mg/dL (8.5-10.1); Potassium 3.6 mmol/L (3.5-5.1); Total Protein 6.1 g/dL (6.4-8.2)
[2018-03-13 08:45] VITALS: BP 128/74
[2018-03-13] MEDS ORDERED: LEVOFLOXACIN 500 MG TAB PO SCH (10:00)
[2018-03-13] MEDS ORDERED: predniSONE 20 MG TAB PO SCH (10:00)
[2018-03-13] MEDS: FUROSEMIDE 40 MG TAB PO SCH (10:37)
[2018-03-13] MEDS: ALPRAZolam 0.25 MG TAB PO SCH (10:38)
[2018-03-13] MEDS: FAMOTIDINE 20 MG TAB PO SCH (10:38)
[2018-03-13] MEDS: Glucerna Carbsteady SHAKE Vanilla 8oz PO SCH ×3 (10:39→18:55)
[2018-03-13 13:00] VITALS: BP 139/79
[2018-03-13 17:10] VITALS: BP 121/60
[2018-03-14] MEDS ORDERED: LEVOFLOXACIN 250 MG TAB PO SCH (10:00)
== END 2018-03-13 20:33 | disposition home or self-care (01) | DRG 196 ==
LOC: ER 21:00 → TELE 21:01 → TELE-CENTR 02-28 09:09 → DOU IN ICU 03-03 20:01 → TELE-WESTW 03-12 15:52
PROVIDERS: ADMIT Nurse Practitioner; ATTEND Internal Medicine
DX: J84.10 Pulmonary fibrosis, unspecified (principal); J96.20 Acute and chronic respiratory failure, unspecified whether with hypoxia or hypercapnia; J96.21 Acute and chronic respiratory failure with hypoxia; J18.9 Pneumonia, unspecified organism; I50.33 Acute on chronic diastolic (congestive) heart failure; J98.11 Atelectasis; E44.0 Moderate protein-calorie malnutrition; I50.32 Chronic diastolic (congestive) heart failure; D68.69 Other thrombophilia; Z68.1 Body mass index [BMI] 19.9 or less, adult; E87.6 Hypokalemia; J20.9 Acute bronchitis, unspecified; D63.8 Anemia in other chronic diseases classified elsewhere; F41.9 Anxiety disorder, unspecified; I11.0 Hypertensive heart disease with heart failure; I27.20 Pulmonary hypertension, unspecified; I48.91 Unspecified atrial fibrillation; Z95.0 Presence of cardiac pacemaker; Z99.81 Dependence on supplemental oxygen
CPT/HCPCS: 36415; 36600; 71045; 71250; 80048; 80053; 80202; 81001; 82805; 82962; 83605; 83735; 83880; 84484; 85025; 85610; 85730; 87040; 87081; 87804; 93005; 93306; 94640; 96365; 96367; 96372; 96375; 97110; 97163; 97530; J0610; J0696; J1815; J1956; J2543; J7060

== ENCOUNTER 2018-04-06 11:16 | Inpatient (IN) | payer BC ==
[~2018-04-06] VITALS: Ht 157.5 cm; Wt 54.2 kg
[2018-04-06] MEDS: BUDESONIDE (INHALATION) 0.5 MG/2 ML NEB NEB SCH (01:12)
[~2018-04-06 11:16] MED LIST: ALEN70TA2 PO; APIX5TAB PO; ATO40T PO; DILT60TA27 PO; DOCU-94 PO; FAMO-12 PO; FLUT230A2 IN; FURO40TA4 PO; LORA-654 PO; POTA10TA51 PO; PROM1SYP4 PO
[2018-04-06] MEDS ORDERED: SODIUM CHLORIDE 0.9% 1,000 ML IV ONE (12:03)
[2018-04-06] MEDS ORDERED: ALBUTEROL SULF 2.5 MG/0.5ML(0.5%) NEB SOLN NEB ONE (12:15)
[2018-04-06] MEDS ORDERED: IPRATROPIUM BROM 0.5 MG/2.5ML INH SOL NEB ONE (12:15)
[2018-04-06 12:34] LABS: Basophils # (auto) 0 uL; Eosinophils # (auto) 0 uL; Eosinophils % (auto) 0.2 % (0.0-7.0); Hemoglobin 8.3 g/dL (12.2-16.2); Lymphocytes # (auto) 0.5 uL; Lymphocytes % (auto) 7.8 % (10.0-50.0); Mean Corpuscular Volume 89.9 fL (80.0-100.0); Monocytes # (auto) 0.4 uL; White Blood Cell 6.9 10^3/uL (4.4-10.8)
[2018-04-06 12:36] LABS: Basophils % (auto) 0.3 % (0.0-2.0); Mean Corpuscular Hemoglobin 29.9 pg (28.0-32.0); Mean Corpuscular Hgb Conc. 33.2 g/dL (32.0-36.0); Monocytes % (auto) 6.5 % (0.0-12.0); Neutrophils # (auto) 5.8 uL; Neutrophils % (auto) 85.2 % (37.0-80.0); Platelet Count (auto) 254 10^3/uL (140-450); Red Blood Cells 2.78 10^6/uL (4.0-5.20); Red Cell Distribution Width 15.7 % (11.8-14.3)
[2018-04-06 12:49] LABS: Albumin 2.9 g/dL (3.4-5.0); Anion Gap 10 (5-15); Calcium 7.8 mg/dL (8.5-10.1); Carbon Dioxide 28 mmol/L (21-32); Chloride 96 mmol/L (98-107); Potassium 3.1 mmol/L (3.5-5.1); Sodium 134 mmol/L (136-145)
[2018-04-06 12:55] LABS: Alkaline Phosphatase 71 U/L (45-117); Aspartate Aminotransferase 20 U/L (15-37); Bilirubin, Total 0.7 mg/dL (0.2-1.0); GFR African American 90 mL/min; GFR Non-African American 74 mL/min; Glucose 153 mg/dL (74-106); Magnesium 1.5 mg/dL (1.6-2.6); Total Protein 6.2 g/dL (6.4-8.2)
[2018-04-06 12:58] LABS: Blood Urea Nitrogen 20 mg/dL (7-18)
[2018-04-06 13:01] LABS: INR 1.13 (0.9-1.15)
[2018-04-06 13:07] LABS: Alanine Aminotransferase 23 U/L (13-56)
[2018-04-06] MEDS ORDERED: POTASSIUM EFFERVESENT TAB 25 MEQ PO ONE (15:30)
[2018-04-06] MEDS ORDERED: SPIRONOLACTONE 25 MG TAB PO ONE (15:30)
[2018-04-06] MEDS ORDERED: FUROSEMIDE 20 MG/2 ML VIAL IV ONE (15:30)
[2018-04-06] MEDS ORDERED: methylPREDNISolone SOD SUCC 125 MG/2 ML VL IV ONE (16:00)
[2018-04-06] MEDS: MAGNESIUM SULFATE 1GM/100ML 100 ML IV SCH ×2 (16:22→17:12)
[2018-04-06 17:15] LABS: Urine Bacteria NONE SEEN /hpf (None Seen); Urine Blood TRACE /uL (Negative); Urine Budding Yeast FEW /hpf (None Seen); Urine Specific Gravity 1.008 (1.001-1.035); Urine WBC 11 /hpf (0 - 5)
[2018-04-06] MEDS ORDERED: DEXTROSE (50%) 50ML SYRG IV PRN (18:15)
[2018-04-06] MEDS ORDERED: cefTRIAXone 1GM/10ml IVPUSH 10 ML IV ONE (18:15)
[2018-04-06] MEDS ORDERED: MORPHINE SULF INJ 2 MG/ML SYRINGE 1ML IV PRN ×2 (18:15)
[2018-04-06] MEDS ORDERED: NITROGLYCERIN 0.4 MG SL TAB SL PRN (18:15)
[2018-04-06] MEDS ORDERED: ONDANSETRON HCL 4 MG/2 ML VIAL IV PRN (18:15)
[2018-04-06] MEDS ORDERED: TEMAZEPAM 15 MG CAP PO PRN (18:15)
[2018-04-06] MEDS ORDERED: AZITHROMYCIN 250 MG TAB PO ONE (18:30)
[2018-04-06 19:29] VITALS: BP 152/62
[2018-04-06 19:34] LABS: BUN/Creatinine Ratio 21.8; Calcium 8.1 mg/dL (8.5-10.1); Potassium 4.6 mmol/L (3.5-5.1)
[2018-04-06] MEDS: HYDROcodone-ACET 5/325MG TAB PO PRN (19:40)
[2018-04-06 20:05] VITALS: BP 116/77
[2018-04-06] MEDS: PROMETHAZINE W/CODEINE 5 ML ORAL SYRUP PO PRN (21:10)
[2018-04-06 21:31] VITALS: BP 116/77
[2018-04-06] MEDS: APIXABAN 5 MG TAB PO SCH (21:44)
[2018-04-06] MEDS: FAMOTIDINE 20 MG TAB PO SCH (21:44)
[2018-04-06] MEDS: ATORVASTATIN 20 MG TAB PO SCH (21:44)
[2018-04-06] MEDS: ACCU-CHEK COMFORT CURVE STRIP VI SCH (21:45)
[2018-04-06] MEDS: SODIUM CHLOR 0.9% PF (SALINE LOCK) 10ML VIAL/SYR IV SCH (21:50)
[2018-04-06] MEDS ORDERED: PATIENTS OWN MEDICATION IN SCH (22:00)
[2018-04-06] MEDS: InsuLIN REG 1unit/0.01ml Soln (100units/ml) SC SCH (22:11)
[2018-04-07] MEDS: methylPREDNISolone SOD SUCC 40 MG/ML VL IV SCH ×5 (00:02→23:40)
[2018-04-07] MEDS: ALBUTEROL SULF 2.5 MG/0.5ML(0.5%) NEB SOLN NEB SCH ×4 (01:12→19:03)
[2018-04-07] MEDS: IPRATROPIUM BROM 0.5 MG/2.5ML INH SOL NEB SCH ×4 (01:12→19:03)
[2018-04-07] MEDS: PROMETHAZINE W/CODEINE 5 ML ORAL SYRUP PO PRN ×3 (04:51→23:40)
[2018-04-07 05:29] VITALS: BP 135/67
[2018-04-07] MEDS: SPIRONOLACTONE 25 MG TAB PO SCH ×2 (06:04→17:32)
[2018-04-07] MEDS: BUDESONIDE (INHALATION) 0.5 MG/2 ML NEB NEB SCH ×2 (06:05→19:03)
[2018-04-07] MEDS: SODIUM CHLOR 0.9% PF (SALINE LOCK) 10ML VIAL/SYR IV SCH ×3 (06:12→22:06)
[2018-04-07 06:25] LABS: Basophils # (auto) 0 uL; Eosinophils # (auto) 0 uL; Hematocrit 25.6 % (36.0-46.0); Hemoglobin 8.8 g/dL (12.2-16.2); Lymphocytes # (auto) 0.2 uL; Lymphocytes % (auto) 2.5 % (10.0-50.0); Mean Corpuscular Hemoglobin 30.3 pg (28.0-32.0); Mean Corpuscular Hgb Conc. 34.2 g/dL (32.0-36.0); Mean Corpuscular Volume 88.8 fL (80.0-100.0); Monocytes # (auto) 0.1 uL; Monocytes % (auto) 1.9 % (0.0-12.0); Neutrophils # (auto) 6.7 uL; Neutrophils % (auto) 95.6 % (37.0-80.0); Platelet Count (auto) 266 10^3/uL (140-450); Red Blood Cells 2.89 10^6/uL (4.0-5.20); Red Cell Distribution Width 15.9 % (11.8-14.3)
[2018-04-07] MEDS: ACCU-CHEK COMFORT CURVE STRIP VI SCH ×4 (06:28→22:06)
[2018-04-07] MEDS ORDERED: ALENDRONATE SODIUM 10 MG TAB PO SCH (06:30)
[2018-04-07] MEDS: InsuLIN REG 1unit/0.01ml Soln (100units/ml) SC SCH ×4 (06:40→22:07)
[2018-04-07 06:48] LABS: Alanine Aminotransferase 24 U/L (13-56); Alkaline Phosphatase 76 U/L (45-117); Anion Gap 8 (5-15); Aspartate Aminotransferase 23 U/L (15-37); BUN/Creatinine Ratio 27.1; Bilirubin, Total 0.6 mg/dL (0.2-1.0); Blood Urea Nitrogen 19 mg/dL (7-18); Calcium 7.8 mg/dL (8.5-10.1); Carbon Dioxide 33 mmol/L (21-32); Chloride 96 mmol/L (98-107); GFR African American 105 mL/min; GFR Non-African American 87 mL/min; Glucose 198 mg/dL (74-106); Potassium 3.8 mmol/L (3.5-5.1); Sodium 137 mmol/L (136-145); Total Protein 6.6 g/dL (6.4-8.2)
[2018-04-07 08:18] VITALS: BP 135/65
[2018-04-07] MEDS: Glucerna Carbsteady SHAKE Vanilla 8oz PO SCH ×3 (09:09→18:25)
[2018-04-07] MEDS: cefTRIAXone 1GM/10ml IVPUSH 10 ML IV SCH (09:15)
[2018-04-07] MEDS: FUROSEMIDE 40 MG/4 ML VIAL IV SCH (09:46)
[2018-04-07] MEDS: FAMOTIDINE 20 MG TAB PO SCH ×2 (09:47→22:06)
[2018-04-07] MEDS: APIXABAN 5 MG TAB PO SCH ×2 (09:47→22:06)
[2018-04-07] MEDS: AZITHROMYCIN 250 MG TAB PO SCH (09:47)
[2018-04-07] MEDS: MULTIPLE VITAMIN TAB PO SCH (09:47)
[2018-04-07] MEDS: LORazepam 0.5 MG TAB PO PRN ×2 (09:48→18:32)
[2018-04-07] MEDS: DILTIAZEM HCL 120MG ER CAP PO SCH (09:48)
[2018-04-07] MEDS: POTASSIUM EFFERVESENT TAB 25 MEQ PO SCH (09:48)
[2018-04-07 12:28] VITALS: BP 130/70
[2018-04-07 17:10] VITALS: BP 124/67
[2018-04-07] MEDS: ATORVASTATIN 20 MG TAB PO SCH (22:06)
[2018-04-08] MEDS: ALBUTEROL SULF 2.5 MG/0.5ML(0.5%) NEB SOLN NEB SCH ×4 (00:20→19:21)
[2018-04-08] MEDS: IPRATROPIUM BROM 0.5 MG/2.5ML INH SOL NEB SCH ×4 (00:20→19:21)
[2018-04-08 00:34] VITALS: BP 111/67
[2018-04-08] MEDS: BUDESONIDE (INHALATION) 0.5 MG/2 ML NEB NEB SCH ×2 (05:28→19:22)
[2018-04-08] MEDS: SODIUM CHLOR 0.9% PF (SALINE LOCK) 10ML VIAL/SYR IV SCH ×3 (05:40→22:05)
[2018-04-08] MEDS: methylPREDNISolone SOD SUCC 40 MG/ML VL IV SCH (05:40)
[2018-04-08] MEDS: SPIRONOLACTONE 25 MG TAB PO SCH ×2 (05:41→18:00)
[2018-04-08 05:45] VITALS: BP 123/69
[2018-04-08] MEDS: ACCU-CHEK COMFORT CURVE STRIP VI SCH ×4 (06:41→22:01)
[2018-04-08] MEDS: InsuLIN REG 1unit/0.01ml Soln (100units/ml) SC SCH ×4 (06:41→22:02)
[2018-04-08 07:48] LABS: Basophils # (auto) 0 uL; Basophils % (auto) 0.1 % (0.0-2.0); Eosinophils # (auto) 0 uL; Red Cell Distribution Width 15.7 % (11.8-14.3)
[2018-04-08 07:52] LABS: Hematocrit 22.9 % (36.0-46.0); Hemoglobin 7.8 g/dL (12.2-16.2); Lymphocytes # (auto) 0.2 uL; Lymphocytes % (auto) 2.3 % (10.0-50.0); Mean Corpuscular Hemoglobin 30.1 pg (28.0-32.0); Mean Corpuscular Hgb Conc. 33.8 g/dL (32.0-36.0); Mean Corpuscular Volume 88.9 fL (80.0-100.0); Monocytes # (auto) 0.4 uL; Monocytes % (auto) 4.2 % (0.0-12.0); Neutrophils # (auto) 9.3 uL; Neutrophils % (auto) 93.4 % (37.0-80.0); Platelet Count (auto) 278 10^3/uL (140-450); Red Blood Cells 2.58 10^6/uL (4.0-5.20); White Blood Cell 9.9 10^3/uL (4.4-10.8)
[2018-04-08 08:08] LABS: Albumin 2.8 g/dL (3.4-5.0); Bilirubin, Total 0.4 mg/dL (0.2-1.0); Calcium 7.7 mg/dL (8.5-10.1); Potassium 3.1 mmol/L (3.5-5.1); Total Protein 6.3 g/dL (6.4-8.2)
[2018-04-08] MEDS: LORazepam 0.5 MG TAB PO PRN ×2 (08:27→22:01)
[2018-04-08] MEDS: Glucerna Carbsteady SHAKE Vanilla 8oz PO SCH ×3 (08:29→18:00)
[2018-04-08] MEDS: cefTRIAXone 1GM/10ml IVPUSH 10 ML IV SCH (08:32)
[2018-04-08 09:00] VITALS: BP 137/71
[2018-04-08] MEDS ORDERED: POTASSIUM CHL 20 Meq TABLET PO ONE (09:15)
[2018-04-08] MEDS: FUROSEMIDE 40 MG/4 ML VIAL IV SCH ×2 (10:00→18:00)
[2018-04-08] MEDS: POTASSIUM EFFERVESENT TAB 25 MEQ PO SCH (10:46)
[2018-04-08] MEDS: APIXABAN 5 MG TAB PO SCH ×2 (10:46→22:01)
[2018-04-08] MEDS: MULTIPLE VITAMIN TAB PO SCH (10:46)
[2018-04-08] MEDS: AZITHROMYCIN 250 MG TAB PO SCH (10:46)
[2018-04-08] MEDS: DILTIAZEM HCL 120MG ER CAP PO SCH (10:47)
[2018-04-08] MEDS: FAMOTIDINE 20 MG TAB PO SCH ×2 (10:47→22:01)
[2018-04-08] MEDS: HYDROcodone-ACET 5/325MG TAB PO PRN ×2 (11:00→22:46)
[2018-04-08] MEDS ORDERED: methylPREDNISolone SOD SUCC 40 MG/ML VL ONE (12:38)
[2018-04-08 13:00] VITALS: BP 125/76
[2018-04-08] MEDS ORDERED: IOHEXOL 350 MG/ML 100ML IJ ONE (15:23)
[2018-04-08 16:59] VITALS: BP 115/69
[2018-04-08] MEDS ORDERED: THROAT LOZENGES(CEPASTAT) MT PRN (17:45)
[2018-04-08] MEDS ORDERED: methylPREDNISolone SOD SUCC 125 MG/2 ML VL IV SCH (18:00)
[2018-04-08] MEDS: methylPREDNISolone SOD SUCC 125 MG/2 ML VL IV SCH (18:20)
[2018-04-08 21:20] VITALS: BP 145/82
[2018-04-08] MEDS: ATORVASTATIN 20 MG TAB PO SCH (22:01)
[2018-04-09] VITALS (7 sets, daily range): BP systolic 119–138; BP diastolic 45–77
[2018-04-09] MEDS: methylPREDNISolone SOD SUCC 125 MG/2 ML VL IV SCH ×4 (00:36→16:45)
[2018-04-09] MEDS: ALBUTEROL SULF 2.5 MG/0.5ML(0.5%) NEB SOLN NEB SCH ×4 (01:19→18:44)
[2018-04-09] MEDS: IPRATROPIUM BROM 0.5 MG/2.5ML INH SOL NEB SCH ×4 (01:19→18:44)
[2018-04-09 05:36] LABS: Basophils # (auto) 0 uL; Basophils % (auto) 0.1 % (0.0-2.0); Eosinophils # (auto) 0 uL; Lymphocytes # (auto) 0.2 uL; Lymphocytes % (auto) 1.6 % (10.0-50.0); Monocytes # (auto) 0.3 uL; Red Cell Distribution Width 16.3 % (11.8-14.3)
[2018-04-09 05:39] LABS: Hematocrit 24.6 % (36.0-46.0); Hemoglobin 8.3 g/dL (12.2-16.2); Mean Corpuscular Hemoglobin 30.1 pg (28.0-32.0); Mean Corpuscular Hgb Conc. 33.8 g/dL (32.0-36.0); Mean Corpuscular Volume 89.1 fL (80.0-100.0); Neutrophils # (auto) 9.6 uL; Neutrophils % (auto) 95.3 % (37.0-80.0); Platelet Count (auto) 294 10^3/uL (140-450); Red Blood Cells 2.76 10^6/uL (4.0-5.20)
[2018-04-09] MEDS: BUDESONIDE (INHALATION) 0.5 MG/2 ML NEB NEB SCH ×2 (05:47→21:57)
[2018-04-09 05:50] LABS: BUN/Creatinine Ratio 26.9; Bilirubin, Total 0.4 mg/dL (0.2-1.0); Calcium 7.7 mg/dL (8.5-10.1); Potassium 3.1 mmol/L (3.5-5.1); Total Protein 6.5 g/dL (6.4-8.2)
[2018-04-09] MEDS: FUROSEMIDE 40 MG/4 ML VIAL IV SCH ×2 (06:46→16:45)
[2018-04-09] MEDS: ACCU-CHEK COMFORT CURVE STRIP VI SCH ×4 (06:47→21:37)
[2018-04-09] MEDS: SPIRONOLACTONE 25 MG TAB PO SCH (06:47)
[2018-04-09] MEDS: SODIUM CHLOR 0.9% PF (SALINE LOCK) 10ML VIAL/SYR IV SCH ×3 (06:51→21:37)
[2018-04-09] MEDS: InsuLIN REG 1unit/0.01ml Soln (100units/ml) SC SCH ×4 (06:51→21:47)
[2018-04-09] MEDS ORDERED: POTASSIUM CHL 20 Meq TABLET PO ONE (07:30)
[2018-04-09] MEDS: Glucerna Carbsteady SHAKE Vanilla 8oz PO SCH ×3 (10:16→17:07)
[2018-04-09] MEDS: POTASSIUM EFFERVESENT TAB 25 MEQ PO SCH (10:22)
[2018-04-09] MEDS: cefTRIAXone 1GM/10ml IVPUSH 10 ML IV SCH (10:22)
[2018-04-09] MEDS: MULTIPLE VITAMIN TAB PO SCH (10:23)
[2018-04-09] MEDS: APIXABAN 5 MG TAB PO SCH ×2 (10:23→21:47)
[2018-04-09] MEDS: DILTIAZEM HCL 120MG ER CAP PO SCH (10:23)
[2018-04-09] MEDS: FAMOTIDINE 20 MG TAB PO SCH ×2 (10:23→21:47)
[2018-04-09] MEDS: AZITHROMYCIN 250 MG TAB PO SCH (10:23)
[2018-04-09] MEDS: PROMETHAZINE W/CODEINE 5 ML ORAL SYRUP PO PRN (10:59)
[2018-04-09] MEDS: LORazepam 0.5 MG TAB PO PRN (21:47)
[2018-04-09] MEDS: ATORVASTATIN 20 MG TAB PO SCH (21:47)
[2018-04-10] VITALS (9 sets, daily range): BP systolic 113–145; BP diastolic 44–94
[2018-04-10] MEDS: methylPREDNISolone SOD SUCC 125 MG/2 ML VL IV SCH ×4 (00:21→22:03)
[2018-04-10] MEDS: PROMETHAZINE W/CODEINE 5 ML ORAL SYRUP PO PRN ×2 (02:52→19:38)
[2018-04-10] MEDS: ALBUTEROL SULF 2.5 MG/0.5ML(0.5%) NEB SOLN NEB SCH ×4 (03:00→18:00)
[2018-04-10] MEDS: IPRATROPIUM BROM 0.5 MG/2.5ML INH SOL NEB SCH ×4 (03:00→18:27)
[2018-04-10 05:05] LABS: Eosinophils # (auto) 0 uL; Lymphocytes # (auto) 0.1 uL; White Blood Cell 10.5 10^3/uL (4.4-10.8)
[2018-04-10 05:06] LABS: Basophils # (auto) 0.1 uL; Basophils % (auto) 0.7 % (0.0-2.0); Hematocrit 24.3 % (36.0-46.0); Lymphocytes % (auto) 1.3 % (10.0-50.0); Mean Corpuscular Hemoglobin 29.1 pg (28.0-32.0); Mean Corpuscular Hgb Conc. 32.8 g/dL (32.0-36.0); Mean Corpuscular Volume 88.8 fL (80.0-100.0); Monocytes # (auto) 0.5 uL; Monocytes % (auto) 4.6 % (0.0-12.0); Neutrophils # (auto) 9.8 uL; Neutrophils % (auto) 93.4 % (37.0-80.0); Nucleated Red Blood Cells % 0.2 %; Platelet Count (auto) 307 10^3/uL (140-450); Red Blood Cells 2.74 10^6/uL (4.0-5.20); Red Cell Distribution Width 15.9 % (11.8-14.3)
[2018-04-10 05:22] LABS: Albumin 2.9 g/dL (3.4-5.0); BUN/Creatinine Ratio 30.4; Calcium 7.7 mg/dL (8.5-10.1); Magnesium 2.1 mg/dL (1.6-2.6); Potassium 3.3 mmol/L (3.5-5.1)
[2018-04-10 05:30] LABS: Bilirubin, Total 0.5 mg/dL (0.2-1.0); Total Protein 6.2 g/dL (6.4-8.2)
[2018-04-10] MEDS: SODIUM CHLOR 0.9% PF (SALINE LOCK) 10ML VIAL/SYR IV SCH ×3 (06:24→22:04)
[2018-04-10] MEDS: FUROSEMIDE 40 MG/4 ML VIAL IV SCH (06:24)
[2018-04-10] MEDS: ACCU-CHEK COMFORT CURVE STRIP VI SCH ×4 (06:31→22:04)
[2018-04-10] MEDS: InsuLIN REG 1unit/0.01ml Soln (100units/ml) SC SCH ×4 (06:51→22:04)
[2018-04-10] MEDS: BUDESONIDE (INHALATION) 0.5 MG/2 ML NEB NEB SCH ×2 (07:21→18:27)
[2018-04-10] MEDS: Glucerna Carbsteady SHAKE Vanilla 8oz PO SCH ×3 (08:00→18:07)
[2018-04-10] MEDS: cefTRIAXone 1GM/10ml IVPUSH 10 ML IV SCH (09:16)
[2018-04-10] MEDS: APIXABAN 5 MG TAB PO SCH ×2 (09:16→22:03)
[2018-04-10] MEDS: FAMOTIDINE 20 MG TAB PO SCH ×2 (09:16→22:03)
[2018-04-10] MEDS: DILTIAZEM HCL 120MG ER CAP PO SCH (09:17)
[2018-04-10] MEDS: MULTIPLE VITAMIN TAB PO SCH (09:17)
[2018-04-10] MEDS: POTASSIUM EFFERVESENT TAB 25 MEQ PO SCH (09:18)
[2018-04-10] MEDS: LORazepam 0.5 MG TAB PO PRN ×2 (09:28→15:46)
[2018-04-10] MEDS: AZITHROMYCIN 250 MG TAB PO SCH (09:28)
[2018-04-10] MEDS ORDERED: BISACODYL 10 MG RECT SUPP PR ONE (12:15)
[2018-04-10] MEDS ORDERED: POTASSIUM EFFERVESENT TAB 25 MEQ PO ONE (12:15)
[2018-04-10] MEDS ORDERED: SORE THROAT SPRAY 6OZ BOTTLE MT PRN (12:15)
[2018-04-10] MEDS ORDERED: THROAT LOZENGES(CEPASTAT) MT PRN (13:45)
[2018-04-10] MEDS ORDERED: ALBUTEROL SULF 2.5 MG/0.5ML(0.5%) NEB SOLN NEB ONE (16:00)
[2018-04-10] MEDS ORDERED: DEXTROSE (50%) 50ML SYRG IV PRN (16:15)
[2018-04-10] MEDS: HYDROcodone-ACET 5/325MG TAB PO PRN (19:44)
[2018-04-10] MEDS: ATORVASTATIN 20 MG TAB PO SCH (22:04)
[2018-04-11] VITALS (12 sets, daily range): BP systolic 103–146; BP diastolic 51–97
[2018-04-11] MEDS: ALBUTEROL SULF 2.5 MG/0.5ML(0.5%) NEB SOLN NEB SCH ×4 (00:25→18:36)
[2018-04-11] MEDS: IPRATROPIUM BROM 0.5 MG/2.5ML INH SOL NEB SCH ×4 (00:25→18:35)
[2018-04-11] MEDS: LORazepam 0.5 MG TAB PO PRN ×2 (03:40→13:43)
[2018-04-11 05:56] LABS: BUN/Creatinine Ratio 37.5; Calcium 8.3 mg/dL (8.5-10.1); Potassium 3.5 mmol/L (3.5-5.1)
[2018-04-11] MEDS: methylPREDNISolone SOD SUCC 125 MG/2 ML VL IV SCH (06:04)
[2018-04-11] MEDS: SODIUM CHLOR 0.9% PF (SALINE LOCK) 10ML VIAL/SYR IV SCH ×3 (06:04→21:26)
[2018-04-11] MEDS: BUDESONIDE (INHALATION) 0.5 MG/2 ML NEB NEB SCH ×2 (06:14→18:36)
[2018-04-11] MEDS: ACCU-CHEK COMFORT CURVE STRIP VI SCH ×4 (06:43→21:41)
[2018-04-11] MEDS: InsuLIN REG 1unit/0.01ml Soln (100units/ml) SC SCH ×4 (06:43→21:41)
[2018-04-11] MEDS: FUROSEMIDE 40 MG/4 ML VIAL IV SCH (10:29)
[2018-04-11] MEDS: cefTRIAXone 1GM/10ml IVPUSH 10 ML IV SCH (10:29)
[2018-04-11] MEDS: FAMOTIDINE 20 MG TAB PO SCH ×2 (10:30→21:26)
[2018-04-11] MEDS: MULTIPLE VITAMIN TAB PO SCH (10:30)
[2018-04-11] MEDS: AZITHROMYCIN 250 MG TAB PO SCH (10:30)
[2018-04-11] MEDS: DILTIAZEM HCL 120MG ER CAP PO SCH (10:30)
[2018-04-11] MEDS: APIXABAN 5 MG TAB PO SCH ×2 (10:31→21:26)
[2018-04-11] MEDS: Glucerna Carbsteady SHAKE Vanilla 8oz PO SCH ×3 (10:31→17:53)
[2018-04-11] MEDS: POTASSIUM EFFERVESENT TAB 25 MEQ PO SCH (10:31)
[2018-04-11] MEDS: methylPREDNISolone SOD SUCC 40 MG/ML VL IV SCH ×3 (11:59→21:25)
[2018-04-11] MEDS: PROMETHAZINE W/CODEINE 5 ML ORAL SYRUP PO PRN (20:44)
[2018-04-11] MEDS: ATORVASTATIN 20 MG TAB PO SCH (21:26)
[2018-04-12] VITALS (13 sets, daily range): BP systolic 110–147; BP diastolic 55–79
[2018-04-12] MEDS: IPRATROPIUM BROM 0.5 MG/2.5ML INH SOL NEB SCH ×4 (00:34→18:15)
[2018-04-12] MEDS: ALBUTEROL SULF 2.5 MG/0.5ML(0.5%) NEB SOLN NEB SCH ×4 (00:34→18:19)
[2018-04-12] MEDS: BUDESONIDE (INHALATION) 0.5 MG/2 ML NEB NEB SCH ×2 (05:55→18:15)
[2018-04-12] MEDS: methylPREDNISolone SOD SUCC 40 MG/ML VL IV SCH (06:28)
[2018-04-12] MEDS: SODIUM CHLOR 0.9% PF (SALINE LOCK) 10ML VIAL/SYR IV SCH ×3 (06:29→21:49)
[2018-04-12] MEDS: ACCU-CHEK COMFORT CURVE STRIP VI SCH ×4 (06:29→21:50)
[2018-04-12] MEDS: InsuLIN REG 1unit/0.01ml Soln (100units/ml) SC SCH ×4 (06:40→21:55)
[2018-04-12] MEDS: Glucerna Carbsteady SHAKE Vanilla 8oz PO SCH ×3 (08:00→18:00)
[2018-04-12] MEDS: cefTRIAXone 1GM/10ml IVPUSH 10 ML IV SCH ×2 (09:00→15:32)
[2018-04-12] MEDS: LORazepam 0.5 MG TAB PO PRN ×2 (09:39→20:13)
[2018-04-12] MEDS: DILTIAZEM HCL 120MG ER CAP PO SCH (10:41)
[2018-04-12] MEDS: MULTIPLE VITAMIN TAB PO SCH (10:42)
[2018-04-12] MEDS: APIXABAN 5 MG TAB PO SCH ×2 (10:42→21:49)
[2018-04-12] MEDS: AZITHROMYCIN 250 MG TAB PO SCH (10:42)
[2018-04-12] MEDS: FAMOTIDINE 20 MG TAB PO SCH ×2 (10:42→21:49)
[2018-04-12] MEDS: POTASSIUM EFFERVESENT TAB 25 MEQ PO SCH (10:44)
[2018-04-12 11:24] LABS: INR 1.11 (0.9-1.15); Partial Thromboplastin Time 23.6 sec (23.78-33.04); Prothrombin Time 11.8 sec (9.27-12.13)
[2018-04-12] MEDS: FUROSEMIDE 40 MG/4 ML VIAL IV SCH (15:45)
[2018-04-12] MEDS: PROMETHAZINE W/CODEINE 5 ML ORAL SYRUP PO PRN (20:13)
[2018-04-12] MEDS: ATORVASTATIN 20 MG TAB PO SCH (21:50)
[2018-04-13] VITALS (9 sets, daily range): BP systolic 125–137; BP diastolic 54–87
[2018-04-13] MEDS: ALBUTEROL SULF 2.5 MG/0.5ML(0.5%) NEB SOLN NEB SCH ×3 (00:54→11:15)
[2018-04-13] MEDS: IPRATROPIUM BROM 0.5 MG/2.5ML INH SOL NEB SCH ×4 (00:54→18:44)
[2018-04-13] MEDS: PROMETHAZINE W/CODEINE 5 ML ORAL SYRUP PO PRN ×3 (02:26→23:27)
[2018-04-13 05:19] LABS: Basophils # (auto) 0 uL; Eosinophils # (auto) 0 uL; Hemoglobin 7.6 g/dL (12.2-16.2); Monocytes # (auto) 0.9 uL; Nucleated Red Blood Cells % 0.1 %
[2018-04-13 05:22] LABS: Basophils % (auto) 0.1 % (0.0-2.0); Eosinophils % (auto) 0.1 % (0.0-7.0); Hematocrit 22.6 % (36.0-46.0); Lymphocytes # (auto) 0.4 uL; Lymphocytes % (auto) 2.7 % (10.0-50.0); Mean Corpuscular Hemoglobin 29.7 pg (28.0-32.0); Mean Corpuscular Hgb Conc. 33.7 g/dL (32.0-36.0); Mean Corpuscular Volume 87.9 fL (80.0-100.0); Monocytes % (auto) 6.6 % (0.0-12.0); Neutrophils # (auto) 12.8 uL; Neutrophils % (auto) 90.5 % (37.0-80.0); Platelet Count (auto) 313 10^3/uL (140-450); Red Blood Cells 2.57 10^6/uL (4.0-5.20); Red Cell Distribution Width 15.9 % (11.8-14.3); White Blood Cell 14.1 10^3/uL (4.4-10.8)
[2018-04-13] MEDS: BUDESONIDE (INHALATION) 0.5 MG/2 ML NEB NEB SCH ×2 (05:39→18:43)
[2018-04-13] MEDS: ACCU-CHEK COMFORT CURVE STRIP VI SCH ×4 (06:22→21:49)
[2018-04-13] MEDS: SODIUM CHLOR 0.9% PF (SALINE LOCK) 10ML VIAL/SYR IV SCH ×3 (06:28→21:48)
[2018-04-13] MEDS: InsuLIN REG 1unit/0.01ml Soln (100units/ml) SC SCH ×4 (06:28→21:49)
[2018-04-13] MEDS: Glucerna Carbsteady SHAKE Vanilla 8oz PO SCH ×3 (08:00→18:00)
[2018-04-13] MEDS: cefTRIAXone 1GM/10ml IVPUSH 10 ML IV SCH (08:39)
[2018-04-13 09:06] LABS: BUN/Creatinine Ratio 41.5; Calcium 8.1 mg/dL (8.5-10.1); Potassium 3.3 mmol/L (3.5-5.1)
[2018-04-13] MEDS: FUROSEMIDE 40 MG/4 ML VIAL IV SCH (10:09)
[2018-04-13] MEDS: predniSONE 20 MG TAB PO SCH (10:10)
[2018-04-13] MEDS: MULTIPLE VITAMIN TAB PO SCH (10:11)
[2018-04-13] MEDS: APIXABAN 5 MG TAB PO SCH ×2 (10:11→21:48)
[2018-04-13] MEDS: POTASSIUM EFFERVESENT TAB 25 MEQ PO SCH (10:11)
[2018-04-13] MEDS: FAMOTIDINE 20 MG TAB PO SCH ×2 (10:11→21:48)
[2018-04-13] MEDS: DILTIAZEM HCL 120MG ER CAP PO SCH (10:11)
[2018-04-13] MEDS: AZITHROMYCIN 250 MG TAB PO SCH (10:12)
[2018-04-13] MEDS: LORazepam 0.5 MG TAB PO PRN ×2 (10:15→23:32)
[2018-04-13] MEDS ORDERED: MORPHINE SULF INJ 2 MG/ML SYRINGE 1ML IV PRN ×2 (13:45)
[2018-04-13] MEDS: LEVALBUTEROL HCL 1.25 MG/3 ML NEB NEB SCH ×2 (14:00→18:43)
[2018-04-13] MEDS ORDERED: FLUCONAZOLE 100 MG TAB PO ONE (14:00)
[2018-04-13] MEDS: ATORVASTATIN 20 MG TAB PO SCH (21:48)
[2018-04-14] MEDS: IPRATROPIUM BROM 0.5 MG/2.5ML INH SOL NEB SCH ×4 (00:12→18:30)
[2018-04-14] MEDS: LEVALBUTEROL HCL 1.25 MG/3 ML NEB NEB SCH ×4 (00:12→18:31)
[2018-04-14] MEDS ORDERED: EPINEPHrine HCL 0.5 ML NEB ONE (05:59)
[2018-04-14] MEDS: ACCU-CHEK COMFORT CURVE STRIP VI SCH ×4 (06:12→22:04)
[2018-04-14] MEDS: SODIUM CHLOR 0.9% PF (SALINE LOCK) 10ML VIAL/SYR IV SCH ×3 (06:12→22:06)
[2018-04-14] MEDS: BUDESONIDE (INHALATION) 0.5 MG/2 ML NEB NEB SCH ×2 (06:14→18:31)
[2018-04-14] MEDS: InsuLIN REG 1unit/0.01ml Soln (100units/ml) SC SCH ×4 (06:20→22:05)
[2018-04-14 08:00] VITALS: BP 122/66
[2018-04-14] MEDS: cefTRIAXone 1GM/10ml IVPUSH 10 ML IV SCH (10:17)
[2018-04-14] MEDS: POTASSIUM EFFERVESENT TAB 25 MEQ PO SCH (10:17)
[2018-04-14] MEDS: DILTIAZEM HCL 120MG ER CAP PO SCH (10:19)
[2018-04-14] MEDS: predniSONE 20 MG TAB PO SCH (10:19)
[2018-04-14] MEDS: MULTIPLE VITAMIN TAB PO SCH (10:19)
[2018-04-14] MEDS: APIXABAN 5 MG TAB PO SCH ×2 (10:20→22:04)
[2018-04-14] MEDS: FLUCONAZOLE 100 MG TAB PO SCH (10:20)
[2018-04-14] MEDS: FAMOTIDINE 20 MG TAB PO SCH ×2 (10:20→22:04)
[2018-04-14] MEDS: FUROSEMIDE 40 MG/4 ML VIAL IV SCH (10:20)
[2018-04-14] MEDS: AZITHROMYCIN 250 MG TAB PO SCH (10:20)
[2018-04-14] MEDS: Glucerna Carbsteady SHAKE Vanilla 8oz PO SCH ×3 (10:21→18:39)
[2018-04-14 12:00] VITALS: BP 123/68
[2018-04-14] MEDS: PROMETHAZINE W/CODEINE 5 ML ORAL SYRUP PO PRN (12:42)
[2018-04-14] MEDS ORDERED: BISACODYL 10 MG RECT SUPP PR ONE (14:45)
[2018-04-14] MEDS ORDERED: BISACODYL 10 MG RECT SUPP PR PRN (14:45)
[2018-04-14] MEDS: HYDROcodone-ACET 5/325MG TAB PO PRN (15:21)
[2018-04-14 15:47] VITALS: BP 102/60
[2018-04-14 20:00] VITALS: BP 118/59
[2018-04-14] MEDS: ATORVASTATIN 20 MG TAB PO SCH (22:04)
[2018-04-15] VITALS (10 sets, daily range): BP systolic 104–137; BP diastolic 54–78
[2018-04-15] MEDS: IPRATROPIUM BROM 0.5 MG/2.5ML INH SOL NEB SCH ×4 (00:46→19:37)
[2018-04-15] MEDS: LEVALBUTEROL HCL 1.25 MG/3 ML NEB NEB SCH ×4 (00:47→19:38)
[2018-04-15] MEDS ORDERED: FLUTICASONE PROP NASAL SPR 0.05 % (50MCG) 16GM EACHNOSTRI PRN (05:45)
[2018-04-15] MEDS: ACCU-CHEK COMFORT CURVE STRIP VI SCH ×4 (06:38→22:33)
[2018-04-15] MEDS: SODIUM CHLOR 0.9% PF (SALINE LOCK) 10ML VIAL/SYR IV SCH ×3 (06:38→22:33)
[2018-04-15] MEDS: InsuLIN REG 1unit/0.01ml Soln (100units/ml) SC SCH ×4 (06:39→22:34)
[2018-04-15] MEDS: BUDESONIDE (INHALATION) 0.5 MG/2 ML NEB NEB SCH ×2 (07:00→19:37)
[2018-04-15] MEDS: Glucerna Carbsteady SHAKE Vanilla 8oz PO SCH ×3 (08:00→18:00)
[2018-04-15] MEDS: cefTRIAXone 1GM/10ml IVPUSH 10 ML IV SCH (09:48)
[2018-04-15] MEDS: PROMETHAZINE W/CODEINE 5 ML ORAL SYRUP PO PRN ×3 (09:48→23:45)
[2018-04-15] MEDS: AZITHROMYCIN 250 MG TAB PO SCH (09:49)
[2018-04-15] MEDS: POTASSIUM EFFERVESENT TAB 25 MEQ PO SCH (09:50)
[2018-04-15] MEDS: predniSONE 20 MG TAB PO SCH (09:51)
[2018-04-15] MEDS: APIXABAN 5 MG TAB PO SCH ×2 (09:51→22:33)
[2018-04-15] MEDS: MULTIPLE VITAMIN TAB PO SCH (09:53)
[2018-04-15] MEDS: FLUCONAZOLE 100 MG TAB PO SCH (09:54)
[2018-04-15] MEDS: FAMOTIDINE 20 MG TAB PO SCH ×2 (10:00→22:33)
[2018-04-15] MEDS: DILTIAZEM HCL 120MG ER CAP PO SCH (10:16)
[2018-04-15] MEDS: FUROSEMIDE 40 MG/4 ML VIAL IV SCH (10:17)
[2018-04-15] MEDS: LORazepam 0.5 MG TAB PO PRN (14:40)
[2018-04-15] MEDS: ATORVASTATIN 20 MG TAB PO SCH (22:33)
[2018-04-16] VITALS (12 sets, daily range): BP systolic 95–131; BP diastolic 47–98
[2018-04-16] MEDS: IPRATROPIUM BROM 0.5 MG/2.5ML INH SOL NEB SCH ×4 (00:03→19:28)
[2018-04-16] MEDS: LEVALBUTEROL HCL 1.25 MG/3 ML NEB NEB SCH ×4 (00:04→19:27)
[2018-04-16] MEDS: ACCU-CHEK COMFORT CURVE STRIP VI SCH ×4 (05:33→21:43)
[2018-04-16] MEDS: InsuLIN REG 1unit/0.01ml Soln (100units/ml) SC SCH ×4 (05:33→22:01)
[2018-04-16] MEDS: SODIUM CHLOR 0.9% PF (SALINE LOCK) 10ML VIAL/SYR IV SCH ×3 (05:33→21:43)
[2018-04-16 05:52] LABS: Platelet Count (auto) 351 10^3/uL (140-450); Red Blood Cells 2.32 10^6/uL (4.0-5.20)
[2018-04-16 05:55] LABS: Hematocrit 20.4 % (36.0-46.0); Mean Corpuscular Hgb Conc. 34.1 g/dL (32.0-36.0); Mean Corpuscular Volume 87.9 fL (80.0-100.0); Red Cell Distribution Width 15.7 % (11.8-14.3); White Blood Cell 12.3 10^3/uL (4.4-10.8)
[2018-04-16 06:01] LABS: Basophils % (manual) 0 (0.0-2.0); Blast Cells 0; Eosinophils % (manual) 0 (0-7); Metamyelocytes % 0; Myelocytes % 0; Promyelocytes % 0; Reactive Lymphocytes 0
[2018-04-16 06:24] LABS: BUN/Creatinine Ratio 32.9; Calcium 8.6 mg/dL (8.5-10.1); Potassium 3.5 mmol/L (3.5-5.1)
[2018-04-16] MEDS: BUDESONIDE (INHALATION) 0.5 MG/2 ML NEB NEB SCH ×2 (06:37→19:27)
[2018-04-16 06:46] LABS: Band Neutrophils % (manual) 2; Lymphocytes % (manual) 3 (10.0-50.0); Monocytes % (manual) 5 (0-12)
[2018-04-16] MEDS: Glucerna Carbsteady SHAKE Vanilla 8oz PO SCH ×3 (09:37→17:47)
[2018-04-16] MEDS: predniSONE 20 MG TAB PO SCH (09:38)
[2018-04-16] MEDS: POTASSIUM EFFERVESENT TAB 25 MEQ PO SCH (09:40)
[2018-04-16] MEDS: DILTIAZEM HCL 120MG ER CAP PO SCH (09:40)
[2018-04-16] MEDS: APIXABAN 5 MG TAB PO SCH ×2 (09:40→21:42)
[2018-04-16] MEDS: FUROSEMIDE 40 MG TAB PO SCH (09:41)
[2018-04-16] MEDS: FAMOTIDINE 20 MG TAB PO SCH ×2 (09:41→21:42)
[2018-04-16] MEDS: MULTIPLE VITAMIN TAB PO SCH (09:41)
[2018-04-16] MEDS: HYDROcodone-ACET 5/325MG TAB PO PRN (09:42)
[2018-04-16] MEDS ORDERED: MORPHINE SULF INJ 2 MG/ML SYRINGE 1ML IV PRN ×2 (11:15)
[2018-04-16] MEDS ORDERED: HYDROcodone-ACET 5/325MG TAB PO PRN (11:15)
[2018-04-16] MEDS: LORazepam 0.5 MG TAB PO PRN (14:15)
[2018-04-16] MEDS: ATORVASTATIN 20 MG TAB PO SCH (21:43)
[2018-04-17] VITALS (7 sets, daily range): BP systolic 106–144; BP diastolic 73–81
[2018-04-17] MEDS: IPRATROPIUM BROM 0.5 MG/2.5ML INH SOL NEB SCH ×4 (00:27→18:30)
[2018-04-17] MEDS: LEVALBUTEROL HCL 1.25 MG/3 ML NEB NEB SCH ×4 (00:27→18:30)
[2018-04-17] MEDS: ACCU-CHEK COMFORT CURVE STRIP VI SCH ×4 (05:37→21:44)
[2018-04-17] MEDS: InsuLIN REG 1unit/0.01ml Soln (100units/ml) SC SCH ×4 (05:37→21:45)
[2018-04-17] MEDS: SODIUM CHLOR 0.9% PF (SALINE LOCK) 10ML VIAL/SYR IV SCH ×3 (05:37→21:45)
[2018-04-17 06:01] LABS: Basophils # (auto) 0 uL; Basophils % (auto) 0.1 % (0.0-2.0); Eosinophils # (auto) 0 uL; Hematocrit 26.1 % (36.0-46.0); Hemoglobin 8.9 g/dL (12.2-16.2); Lymphocytes # (auto) 0.6 uL; Lymphocytes % (auto) 4.8 % (10.0-50.0); Mean Corpuscular Hemoglobin 28.4 pg (28.0-32.0); Mean Corpuscular Volume 83.6 fL (80.0-100.0); Monocytes # (auto) 0.8 uL; Monocytes % (auto) 6.5 % (0.0-12.0); Neutrophils # (auto) 10.7 uL; Neutrophils % (auto) 88.6 % (37.0-80.0); Platelet Count (auto) 318 10^3/uL (140-450); Red Blood Cells 3.12 10^6/uL (4.0-5.20); Red Cell Distribution Width 18.4 % (11.8-14.3); White Blood Cell 12.1 10^3/uL (4.4-10.8)
[2018-04-17] MEDS: BUDESONIDE (INHALATION) 0.5 MG/2 ML NEB NEB SCH ×2 (06:45→18:30)
[2018-04-17] MEDS: Glucerna Carbsteady SHAKE Vanilla 8oz PO SCH ×3 (08:00→19:15)
[2018-04-17] MEDS: APIXABAN 5 MG TAB PO SCH ×2 (10:20→21:44)
[2018-04-17] MEDS: POTASSIUM EFFERVESENT TAB 25 MEQ PO SCH (10:21)
[2018-04-17] MEDS: MULTIPLE VITAMIN TAB PO SCH (10:21)
[2018-04-17] MEDS: FAMOTIDINE 20 MG TAB PO SCH ×2 (10:21→21:44)
[2018-04-17] MEDS: DILTIAZEM HCL 120MG ER CAP PO SCH (10:22)
[2018-04-17] MEDS: predniSONE 20 MG TAB PO SCH (10:23)
[2018-04-17] MEDS: FUROSEMIDE 40 MG TAB PO SCH (10:23)
[2018-04-17] MEDS: PROMETHAZINE W/CODEINE 5 ML ORAL SYRUP PO PRN ×2 (11:35→20:17)
[2018-04-17] MEDS: LORazepam 0.5 MG TAB PO PRN (17:34)
[2018-04-17] MEDS: ATORVASTATIN 20 MG TAB PO SCH (21:44)
[2018-04-18] MEDS: IPRATROPIUM BROM 0.5 MG/2.5ML INH SOL NEB SCH ×5 (00:27→22:56)
[2018-04-18] MEDS: LEVALBUTEROL HCL 1.25 MG/3 ML NEB NEB SCH ×5 (00:27→22:56)
[2018-04-18 05:17] VITALS: BP 125/72
[2018-04-18] MEDS: SODIUM CHLOR 0.9% PF (SALINE LOCK) 10ML VIAL/SYR IV SCH ×3 (05:50→21:33)
[2018-04-18] MEDS: BUDESONIDE (INHALATION) 0.5 MG/2 ML NEB NEB SCH ×2 (06:45→22:56)
[2018-04-18] MEDS: ACCU-CHEK COMFORT CURVE STRIP VI SCH ×4 (06:49→21:33)
[2018-04-18] MEDS: InsuLIN REG 1unit/0.01ml Soln (100units/ml) SC SCH ×4 (06:49→21:34)
[2018-04-18] MEDS: Glucerna Carbsteady SHAKE Vanilla 8oz PO SCH ×3 (08:00→18:00)
[2018-04-18 09:00] VITALS: BP 128/71
[2018-04-18] MEDS: POTASSIUM EFFERVESENT TAB 25 MEQ PO SCH (09:17)
[2018-04-18] MEDS: predniSONE 20 MG TAB PO SCH (09:19)
[2018-04-18] MEDS: APIXABAN 5 MG TAB PO SCH ×2 (09:19→21:33)
[2018-04-18] MEDS: MULTIPLE VITAMIN TAB PO SCH (09:19)
[2018-04-18] MEDS: FAMOTIDINE 20 MG TAB PO SCH ×2 (09:19→21:33)
[2018-04-18] MEDS: LORazepam 0.5 MG TAB PO PRN (09:20)
[2018-04-18] MEDS: DOCUSATE SOD 100 MG CAP PO PRN (09:20)
[2018-04-18] MEDS: FUROSEMIDE 40 MG TAB PO SCH (09:20)
[2018-04-18] MEDS: DILTIAZEM HCL 120MG ER CAP PO SCH (09:20)
[2018-04-18] MEDS: PROMETHAZINE W/CODEINE 5 ML ORAL SYRUP PO PRN ×2 (11:49→19:34)
[2018-04-18 12:30] VITALS: BP 135/70
[2018-04-18] MEDS ORDERED: LACTULOSE 20Gm/30ML SOLN PO ONE (12:30)
[2018-04-18 17:17] VITALS: BP 136/60
[2018-04-18 20:00] VITALS: BP 118/67
[2018-04-18 21:28] VITALS: BP 118/67
[2018-04-18] MEDS: ATORVASTATIN 20 MG TAB PO SCH (21:33)
[2018-04-19 05:04] VITALS: BP 118/67
[2018-04-19] MEDS: BUDESONIDE (INHALATION) 0.5 MG/2 ML NEB NEB SCH ×2 (06:10→22:00)
[2018-04-19] MEDS: IPRATROPIUM BROM 0.5 MG/2.5ML INH SOL NEB SCH ×3 (06:10→19:07)
[2018-04-19] MEDS: LEVALBUTEROL HCL 1.25 MG/3 ML NEB NEB SCH ×3 (06:10→19:07)
[2018-04-19] MEDS: SODIUM CHLOR 0.9% PF (SALINE LOCK) 10ML VIAL/SYR IV SCH ×3 (06:28→22:47)
[2018-04-19] MEDS: ACCU-CHEK COMFORT CURVE STRIP VI SCH ×4 (06:28→22:46)
[2018-04-19] MEDS: InsuLIN REG 1unit/0.01ml Soln (100units/ml) SC SCH ×4 (06:29→22:45)
[2018-04-19] MEDS: Glucerna Carbsteady SHAKE Vanilla 8oz PO SCH ×3 (08:00→18:00)
[2018-04-19 08:31] VITALS: BP 118/67
[2018-04-19 09:00] VITALS: BP 129/73
[2018-04-19] MEDS: MULTIPLE VITAMIN TAB PO SCH (10:10)
[2018-04-19] MEDS: POTASSIUM EFFERVESENT TAB 25 MEQ PO SCH (10:10)
[2018-04-19] MEDS: FAMOTIDINE 20 MG TAB PO SCH ×2 (10:10→22:46)
[2018-04-19] MEDS: predniSONE 20 MG TAB PO SCH (10:10)
[2018-04-19] MEDS: LORazepam 0.5 MG TAB PO PRN (10:10)
[2018-04-19] MEDS: APIXABAN 5 MG TAB PO SCH ×2 (10:10→22:46)
[2018-04-19] MEDS: FUROSEMIDE 40 MG TAB PO SCH (10:11)
[2018-04-19] MEDS: DILTIAZEM HCL 120MG ER CAP PO SCH (10:16)
[2018-04-19] MEDS ORDERED: FLUCONAZOLE 200MG/100ML 100 ML IV ONE (11:30)
[2018-04-19] MEDS: PROMETHAZINE W/CODEINE 5 ML ORAL SYRUP PO PRN ×2 (12:05→20:33)
[2018-04-19] MEDS: ACETAMINOPHEN 325 MG TAB PO PRN (12:05)
[2018-04-19] MEDS: NYSTATIN (MOUTH-THROAT) 500,000 UNITS/5 ML SUSP MT SCH ×3 (12:05→22:45)
[2018-04-19 13:00] VITALS: BP 128/58
[2018-04-19] MEDS: ACYCLOVIR 400 MG TAB PO SCH ×3 (15:36→22:46)
[2018-04-19 17:00] VITALS: BP 124/77
[2018-04-19 21:32] VITALS: BP 127/81
[2018-04-19] MEDS: ATORVASTATIN 20 MG TAB PO SCH (22:46)
[2018-04-20] MEDS: TEMAZEPAM 15 MG CAP PO PRN ×2 (00:07→22:00)
[2018-04-20] MEDS: PROMETHAZINE W/CODEINE 5 ML ORAL SYRUP PO PRN ×4 (00:08→19:25)
[2018-04-20] MEDS: IPRATROPIUM BROM 0.5 MG/2.5ML INH SOL NEB SCH ×4 (01:45→19:36)
[2018-04-20] MEDS: LEVALBUTEROL HCL 1.25 MG/3 ML NEB NEB SCH ×4 (01:45→19:37)
[2018-04-20 04:37] VITALS: BP 116/53
[2018-04-20 05:57] LABS: Basophils # (auto) 0 uL; Basophils % (auto) 0.2 % (0.0-2.0); Eosinophils # (auto) 0 uL; Eosinophils % (auto) 0.2 % (0.0-7.0); Hemoglobin 9.2 g/dL (12.2-16.2); Lymphocytes # (auto) 0.7 uL; Mean Corpuscular Hemoglobin 28.2 pg (28.0-32.0); Mean Corpuscular Volume 85.5 fL (80.0-100.0); Monocytes # (auto) 0.6 uL; Monocytes % (auto) 5.4 % (0.0-12.0); Neutrophils # (auto) 9.6 uL; Neutrophils % (auto) 88.2 % (37.0-80.0); Platelet Count (auto) 316 10^3/uL (140-450); Red Blood Cells 3.28 10^6/uL (4.0-5.20); Red Cell Distribution Width 18.9 % (11.8-14.3); White Blood Cell 10.9 10^3/uL (4.4-10.8)
[2018-04-20 06:26] LABS: BUN/Creatinine Ratio 28.2; Calcium 8.2 mg/dL (8.5-10.1); Potassium 3.5 mmol/L (3.5-5.1)
[2018-04-20] MEDS: SODIUM CHLOR 0.9% PF (SALINE LOCK) 10ML VIAL/SYR IV SCH ×3 (06:57→22:03)
[2018-04-20] MEDS: NYSTATIN (MOUTH-THROAT) 500,000 UNITS/5 ML SUSP MT SCH ×4 (06:57→22:08)
[2018-04-20] MEDS: ACCU-CHEK COMFORT CURVE STRIP VI SCH ×4 (06:58→22:02)
[2018-04-20] MEDS: InsuLIN REG 1unit/0.01ml Soln (100units/ml) SC SCH ×4 (06:58→22:02)
[2018-04-20] MEDS: ACYCLOVIR 400 MG TAB PO SCH ×5 (07:02→22:02)
[2018-04-20 08:50] VITALS: BP 127/60
[2018-04-20] MEDS: POTASSIUM EFFERVESENT TAB 25 MEQ PO SCH (10:09)
[2018-04-20] MEDS: FLUCONAZOLE 200MG/100ML 100 ML IV SCH (10:09)
[2018-04-20] MEDS: Glucerna Carbsteady SHAKE Vanilla 8oz PO SCH ×3 (10:09→17:38)
[2018-04-20] MEDS: APIXABAN 5 MG TAB PO SCH ×2 (10:10→22:01)
[2018-04-20] MEDS: MULTIPLE VITAMIN TAB PO SCH (10:10)
[2018-04-20] MEDS: predniSONE 20 MG TAB PO SCH (10:10)
[2018-04-20] MEDS: FAMOTIDINE 20 MG TAB PO SCH ×2 (10:10→22:01)
[2018-04-20] MEDS: FUROSEMIDE 40 MG TAB PO SCH (10:11)
[2018-04-20] MEDS: DILTIAZEM HCL 120MG ER CAP PO SCH (10:12)
[2018-04-20] MEDS: BUDESONIDE (INHALATION) 0.5 MG/2 ML NEB NEB SCH ×2 (11:33→19:37)
[2018-04-20 12:30] VITALS: BP 129/56
[2018-04-20 16:27] VITALS: BP 117/68
[2018-04-20] MEDS: ACETAMINOPHEN 325 MG TAB PO PRN (17:38)
[2018-04-20] MEDS: DOCUSATE SOD 100 MG CAP PO PRN (22:00)
[2018-04-20] MEDS: ATORVASTATIN 20 MG TAB PO SCH (22:08)
[2018-04-20 22:10] VITALS: BP 103/67
[2018-04-21 05:08] VITALS: BP 110/67
[2018-04-21] MEDS: NYSTATIN (MOUTH-THROAT) 500,000 UNITS/5 ML SUSP MT SCH ×3 (05:46→18:06)
[2018-04-21] MEDS: ACYCLOVIR 400 MG TAB PO SCH ×4 (05:46→18:07)
[2018-04-21] MEDS: SODIUM CHLOR 0.9% PF (SALINE LOCK) 10ML VIAL/SYR IV SCH ×2 (05:47→15:07)
[2018-04-21] MEDS: IPRATROPIUM BROM 0.5 MG/2.5ML INH SOL NEB SCH ×4 (06:47→19:13)
[2018-04-21] MEDS: LEVALBUTEROL HCL 1.25 MG/3 ML NEB NEB SCH ×4 (06:48→19:13)
[2018-04-21] MEDS: BUDESONIDE (INHALATION) 0.5 MG/2 ML NEB NEB SCH ×2 (06:48→19:13)
[2018-04-21] MEDS: InsuLIN REG 1unit/0.01ml Soln (100units/ml) SC SCH ×3 (07:00→18:06)
[2018-04-21] MEDS: ACCU-CHEK COMFORT CURVE STRIP VI SCH ×3 (07:00→18:06)
[2018-04-21 08:55] VITALS: BP 113/68
[2018-04-21] MEDS: FLUCONAZOLE 200MG/100ML 100 ML IV SCH (10:17)
[2018-04-21] MEDS: APIXABAN 5 MG TAB PO SCH (10:18)
[2018-04-21] MEDS: Glucerna Carbsteady SHAKE Vanilla 8oz PO SCH ×3 (10:18→18:06)
[2018-04-21] MEDS: POTASSIUM EFFERVESENT TAB 25 MEQ PO SCH (10:18)
[2018-04-21] MEDS: DILTIAZEM HCL 120MG ER CAP PO SCH (10:19)
[2018-04-21] MEDS: FUROSEMIDE 40 MG TAB PO SCH (10:19)
[2018-04-21] MEDS: MULTIPLE VITAMIN TAB PO SCH (10:19)
[2018-04-21] MEDS: FAMOTIDINE 20 MG TAB PO SCH (10:19)
[2018-04-21] MEDS: predniSONE 20 MG TAB PO SCH (10:19)
[2018-04-21 12:55] VITALS: BP 124/73
[2018-04-21 12:55] LABS: Basophils # (auto) 0 uL; Basophils % (auto) 0.1 % (0.0-2.0); Eosinophils # (auto) 0 uL; Eosinophils % (auto) 0.1 % (0.0-7.0); Hematocrit 29.5 % (36.0-46.0); Hemoglobin 9.5 g/dL (12.2-16.2); Lymphocytes # (auto) 0.4 uL; Lymphocytes % (auto) 2.5 % (10.0-50.0); Mean Corpuscular Hemoglobin 27.1 pg (28.0-32.0); Mean Corpuscular Hgb Conc. 32.1 g/dL (32.0-36.0); Mean Corpuscular Volume 84.7 fL (80.0-100.0); Monocytes # (auto) 0.5 uL; Monocytes % (auto) 3.1 % (0.0-12.0); Neutrophils # (auto) 15.1 uL; Neutrophils % (auto) 94.2 % (37.0-80.0); Platelet Count (auto) 322 10^3/uL (140-450); Red Blood Cells 3.49 10^6/uL (4.0-5.20); Red Cell Distribution Width 18.8 % (11.8-14.3)
[2018-04-21 13:01] LABS: Albumin 2.9 g/dL (3.4-5.0); BUN/Creatinine Ratio 26.9; Calcium 8.5 mg/dL (8.5-10.1); Potassium 4.6 mmol/L (3.5-5.1)
[2018-04-21 13:04] LABS: Bilirubin, Total 0.5 mg/dL (0.2-1.0); Total Protein 6.4 g/dL (6.4-8.2)
[2018-04-21] MEDS: LORazepam 0.5 MG TAB PO PRN (15:09)
[2018-04-21] MEDS: PROMETHAZINE W/CODEINE 5 ML ORAL SYRUP PO PRN ×2 (15:09→19:04)
[2018-04-21 16:22] VITALS: BP 124/56
[2018-04-21 22:00] VITALS: BP 117/68
== END 2018-04-21 20:01 | disposition hospice, home (50) | DRG 196 ==
LOC: EDBD 11:16 → ER 11:16 → TELE 11:17 → TELE-CENTR 20:05 → DOU IN ICU 04-08 20:59 → TELE-WESTW 04-17 15:55
PROVIDERS: ADMIT Internal Medicine; ATTEND Internal Medicine
PROC: 5A09357 Assistance with Respiratory Ventilation, Less than 24 Consecutive Hours, Continuous Positive Airway Pressure (ICD-10-PCS; 2018-04-07)
PROC: 30233N1 Transfusion of Nonautologous Red Blood Cells into Peripheral Vein, Percutaneous Approach (ICD-10-PCS; principal; 2018-04-16)
DX: J84.10 Pulmonary fibrosis, unspecified (principal); J96.21 Acute and chronic respiratory failure with hypoxia; I50.33 Acute on chronic diastolic (congestive) heart failure; J96.22 Acute and chronic respiratory failure with hypercapnia; E87.1 Hypo-osmolality and hyponatremia; E44.0 Moderate protein-calorie malnutrition; J45.901 Unspecified asthma with (acute) exacerbation; I13.0 Hypertensive heart and chronic kidney disease with heart failure and stage 1 through stage 4 chronic kidney disease, or unspecified chronic kidney disease; D63.8 Anemia in other chronic diseases classified elsewhere; E78.5 Hyperlipidemia, unspecified; E83.42 Hypomagnesemia; E83.51 Hypocalcemia; E87.6 Hypokalemia; F41.9 Anxiety disorder, unspecified; I27.20 Pulmonary hypertension, unspecified; E10.21 Type 1 diabetes mellitus with diabetic nephropathy; E10.22 Type 1 diabetes mellitus with diabetic chronic kidney disease; I48.0 Paroxysmal atrial fibrillation; J20.9 Acute bronchitis, unspecified; K12.1 Other forms of stomatitis; K21.9 Gastro-esophageal reflux disease without esophagitis; M81.0 Age-related osteoporosis without current pathological fracture; N18.2 Chronic kidney disease, stage 2 (mild); Z66 Do not resuscitate; Z79.01 Long term (current) use of anticoagulants; Z79.83 Long term (current) use of bisphosphonates; Z82.3 Family history of stroke; Z82.49 Family history of ischemic heart disease and other diseases of the circulatory system; Z86.73 Personal history of transient ischemic attack (TIA), and cerebral infarction without residual deficits; Z87.01 Personal history of pneumonia (recurrent); Z95.0 Presence of cardiac pacemaker; Z90.49 Acquired absence of other specified parts of digestive tract; Z79.899 Other long term (current) drug therapy; Z68.21 Body mass index [BMI] 21.0-21.9, adult
CPT/HCPCS: 36415; 36600; 71045; 71046; 80048; 80053; 81001; 82805; 82962; 83036; 83735; 83880; 84443; 84484; 85007; 85025; 85027; 85379; 85610; 85730; 86850; 86900; 86901; 86920; 87040; 87070; 87081; 87205; 93005; 93970; 94003; 94640; 94660; 96361; 96365; 96375; 97110; 97116; 97163; 97530; A6257; J0696; J1450; J1815

== ENCOUNTER 2018-05-31 11:24 | Inpatient (IN) | payer BC ==
[~2018-05-31] VITALS: Ht 162.6 cm; Wt 57.0 kg
[~2018-05-31 11:24] MED LIST changes: +ACET650S12 RE; -ALEN70TA2 PO; -APIX5TAB PO; +ASPI81TA27 PO; +BIS10RS PR; +CLOP75TA41 PO; +DIGO50SO2 PO; -DOCU-94 PO; +FERR-20 PO; -FLUT230A2 IN; +GLYB1.257 PO; +HYDR-4683 GT; +METF-370 PO; +ONDA-155 PO; +POTA-180 PO; -POTA10TA51 PO; +PRE1T PO; -PROM1SYP4 PO
[2018-05-31] MEDS ORDERED: SODIUM CHLORIDE 0.9% 1,000 ML IV ONE (11:47)
[2018-05-31] MEDS ORDERED: PIPERACILLIN-TAZOB 3.375GM 100 ML IV ONE (12:00)
[2018-05-31 12:25] LABS: Basophils # (auto) 0 uL; Basophils % (auto) 0.1 % (0.0-2.0); Eosinophils # (auto) 0 uL; Eosinophils % (auto) 0.4 % (0.0-7.0); Hematocrit 26.3 % (36.0-46.0); Hemoglobin 8.5 g/dL (12.2-16.2); Lymphocytes # (auto) 1.1 uL; Mean Corpuscular Hemoglobin 28.2 pg (28.0-32.0); Mean Corpuscular Hgb Conc. 32.4 g/dL (32.0-36.0); Monocytes # (auto) 0.6 uL; Monocytes % (auto) 5.4 % (0.0-12.0); Neutrophils % (auto) 84.1 % (37.0-80.0); Platelet Count (auto) 454 10^3/uL (140-450); Red Blood Cells 3.02 10^6/uL (4.0-5.20); Red Cell Distribution Width 19.5 % (11.8-14.3); White Blood Cell 10.7 10^3/uL (4.4-10.8)
[2018-05-31 12:34] LABS: INR 0.96 (0.9-1.15); Partial Thromboplastin Time 23.1 sec (23.78-33.04); Prothrombin Time 10.3 sec (9.27-12.13)
[2018-05-31 12:43] LABS: Alanine Aminotransferase 27 U/L (13-56); Albumin 2.5 g/dL (3.4-5.0); Anion Gap 8 (5-15); Aspartate Aminotransferase 25 U/L (15-37); BUN/Creatinine Ratio 15.7; Blood Urea Nitrogen 17 mg/dL (7-18); Calcium 8.2 mg/dL (8.5-10.1); Carbon Dioxide 35 mmol/L (21-32); Chloride 96 mmol/L (98-107); GFR African American 64 mL/min; GFR Non-African American 53 mL/min; Glucose 86 mg/dL (74-106); Potassium 3.7 mmol/L (3.5-5.1); Sodium 139 mmol/L (136-145)
[2018-05-31 12:45] LABS: Lactic Acid w/Reflex 3.9 mmol/L (0.4-2.0)
[2018-05-31 12:47] LABS: Alkaline Phosphatase 113 U/L (45-117); Bilirubin, Total 0.3 mg/dL (0.2-1.0); Total Protein 6.4 g/dL (6.4-8.2)
[2018-05-31] MEDS ORDERED: ONDANSETRON HCL 4 MG/2 ML VIAL IV PRN (15:15)
[2018-05-31] MEDS ORDERED: ALBUTEROL SULF 2.5 MG/0.5ML(0.5%) NEB SOLN NEB PRN (15:15)
[2018-05-31] MEDS ORDERED: HYDROcodone-ACET 5/325MG TAB PO PRN (15:15)
[2018-05-31] MEDS ORDERED: ACETAMINOPHEN 500 MG TAB PO PRN (15:15)
[2018-05-31] MEDS ORDERED: TEMAZEPAM 15 MG CAP PO PRN (15:15)
[2018-05-31] MEDS ORDERED: LORazepam 0.5 MG TAB PO PRN (15:15)
[2018-05-31] MEDS ORDERED: DEXTROSE (50%) 50ML SYRG IV PRN (15:15)
[2018-05-31] MEDS ORDERED: MORPHINE SULFATE 4 MG/ML SYR/VIAL IV PRN ×2 (15:15)
[2018-05-31] MEDS ORDERED: NITROGLYCERIN 0.4 MG SL TAB SL PRN (15:15)
[2018-05-31] MEDS: DOXYCYCLINE 100MG/250ML 250 ML IV SCH (16:11)
[2018-05-31] MEDS: FUROSEMIDE 40 MG/4 ML VIAL IV SCH (16:11)
[2018-05-31] MEDS: ENOXAPARIN SOD 40 MG/0.4 ML SYRINGE SC SCH (16:11)
[2018-05-31] MEDS: NITROGLYCERIN 0.2MG/HR TOPICAL PATCH TD SCH (16:12)
[2018-05-31] MEDS: ENALAPRIL MALEATE 2.5 MG TAB PO SCH (16:15)
[2018-05-31 16:32] VITALS: BP 133/74
[2018-05-31] MEDS: ACCU-CHEK COMFORT CURVE STRIP VI SCH ×2 (16:48→21:49)
[2018-05-31] MEDS: InsuLIN REG 1unit/0.01ml Soln (100units/ml) SC SCH ×2 (16:48→21:49)
[2018-05-31 17:22] VITALS: BP 122/71
[2018-05-31] MEDS: ALBUTEROL SULF 2.5 MG/0.5ML(0.5%) NEB SOLN NEB SCH (18:24)
[2018-05-31] MEDS: IPRATROPIUM BROM 0.5 MG/2.5ML INH SOL NEB SCH (18:24)
[2018-05-31] MEDS: methylPREDNISolone SOD SUCC 40 MG/ML VL IV SCH (18:34)
[2018-05-31 19:48] VITALS: BP 121/60
[2018-05-31 19:48] LABS: Urine Bacteria FEW /hpf (None Seen); Urine Blood 1+ /uL (Negative); Urine Budding Yeast OCCASIONAL /hpf (None Seen); Urine Mucus FEW (None Seen); Urine Specific Gravity 1.006 (1.001-1.035); Urine WBC 2 /hpf (0 - 5)
[2018-05-31 20:00] VITALS: BP 121/60
[2018-05-31] MEDS: ATORVASTATIN 20 MG TAB PO SCH (21:48)
[2018-05-31] MEDS: FAMOTIDINE 20 MG TAB PO SCH (21:49)
[2018-06-01] VITALS (7 sets, daily range): BP systolic 104–128; BP diastolic 55–66
[2018-06-01] MEDS: methylPREDNISolone SOD SUCC 40 MG/ML VL IV SCH ×4 (00:13→17:06)
[2018-06-01] MEDS: IPRATROPIUM BROM 0.5 MG/2.5ML INH SOL NEB SCH ×5 (00:28→23:49)
[2018-06-01] MEDS: ALBUTEROL SULF 2.5 MG/0.5ML(0.5%) NEB SOLN NEB SCH ×5 (00:28→23:49)
[2018-06-01] MEDS: DOXYCYCLINE 100MG/250ML 250 ML IV SCH ×2 (03:22→15:15)
[2018-06-01] MEDS: InsuLIN REG 1unit/0.01ml Soln (100units/ml) SC SCH ×4 (06:50→22:23)
[2018-06-01] MEDS: ACCU-CHEK COMFORT CURVE STRIP VI SCH ×4 (06:50→22:24)
[2018-06-01] MEDS ORDERED: GLYB5TAB8 PO (06:55)
[2018-06-01] MEDS ORDERED: METF-371 PO (06:55)
[2018-06-01] MEDS ORDERED: DIGO0.1262 PO (06:55)
[2018-06-01] MEDS ORDERED: DILT-14 PO (06:55)
[2018-06-01] MEDS ORDERED: PATIENTS OWN MEDICATION (Ferrous Sulfate 325 MG) PO SCH (08:00)
[2018-06-01] MEDS: FERROUS SULFATE 325 MG TAB PO SCH (08:00)
[2018-06-01] MEDS ORDERED: PATIENTS OWN MEDICATION (Atorvastatin Calcium (Lipitor) 1 TAB) PO SCH (10:00)
[2018-06-01] MEDS ORDERED: DILTIAZEM HCL 60 MG TAB PO SCH (10:00)
[2018-06-01] MEDS ORDERED: DIGOXIN 0.125 MG PO SCH (10:00)
[2018-06-01] MEDS: FAMOTIDINE 20 MG TAB PO SCH ×2 (10:00→22:23)
[2018-06-01] MEDS: FUROSEMIDE 40 MG/4 ML VIAL IV SCH (10:00)
[2018-06-01] MEDS: ASPirin-EC 81 mg tab PO SCH (10:00)
[2018-06-01] MEDS: DIGOXIN 0.125 MG TAB PO SCH (10:00)
[2018-06-01] MEDS: POTASSIUM CHL 20 Meq TABLET PO SCH (10:00)
[2018-06-01] MEDS: CLOPIDOGREL BISULFATE 75 MG TAB PO SCH (10:00)
[2018-06-01] MEDS: glyBURIDE 5 MG TAB PO SCH (10:00)
[2018-06-01] MEDS ORDERED: PANTOPRAZOLE 40 MG TAB PO SCH (10:00)
[2018-06-01] MEDS ORDERED: GLYBURIDE 5 MG PO SCH (10:00)
[2018-06-01] MEDS: ENALAPRIL MALEATE 2.5 MG TAB PO SCH (10:00)
[2018-06-01] MEDS: ENOXAPARIN SOD 40 MG/0.4 ML SYRINGE SC SCH (10:00)
[2018-06-01] MEDS: DILTIAZEM HCL 120MG ER CAP PO SCH (10:00)
[2018-06-01] MEDS: NITROGLYCERIN 0.2MG/HR TOPICAL PATCH TD SCH (10:00)
[2018-06-01] MEDS: ATORVASTATIN 20 MG TAB PO SCH (22:23)
[2018-06-02] MEDS: methylPREDNISolone SOD SUCC 40 MG/ML VL IV SCH ×4 (00:28→18:01)
[2018-06-02] MEDS: DOXYCYCLINE 100MG/250ML 250 ML IV SCH ×2 (03:35→16:09)
[2018-06-02 05:12] VITALS: BP 117/63
[2018-06-02] MEDS: IPRATROPIUM BROM 0.5 MG/2.5ML INH SOL NEB SCH ×3 (05:42→19:41)
[2018-06-02] MEDS: ALBUTEROL SULF 2.5 MG/0.5ML(0.5%) NEB SOLN NEB SCH ×3 (05:42→19:41)
[2018-06-02] MEDS: InsuLIN REG 1unit/0.01ml Soln (100units/ml) SC SCH ×3 (06:34→18:02)
[2018-06-02] MEDS: ACCU-CHEK COMFORT CURVE STRIP VI SCH ×3 (06:34→17:00)
[2018-06-02 09:00] VITALS: BP 141/81
[2018-06-02] MEDS: ENALAPRIL MALEATE 2.5 MG TAB PO SCH (10:20)
[2018-06-02] MEDS: FUROSEMIDE 40 MG/4 ML VIAL IV SCH (10:20)
[2018-06-02] MEDS: NITROGLYCERIN 0.2MG/HR TOPICAL PATCH TD SCH (10:21)
[2018-06-02] MEDS: FERROUS SULFATE 325 MG TAB PO SCH (10:21)
[2018-06-02] MEDS: glyBURIDE 5 MG TAB PO SCH (10:22)
[2018-06-02] MEDS: ASPirin-EC 81 mg tab PO SCH (10:22)
[2018-06-02] MEDS: POTASSIUM CHL 20 Meq TABLET PO SCH (10:22)
[2018-06-02] MEDS: DIGOXIN 0.125 MG TAB PO SCH (10:22)
[2018-06-02] MEDS: CLOPIDOGREL BISULFATE 75 MG TAB PO SCH (10:22)
[2018-06-02] MEDS: ENOXAPARIN SOD 40 MG/0.4 ML SYRINGE SC SCH (10:23)
[2018-06-02] MEDS: FAMOTIDINE 20 MG TAB PO SCH (10:23)
[2018-06-02] MEDS: DILTIAZEM HCL 120MG ER CAP PO SCH (10:23)
[2018-06-02 13:00] VITALS: BP 112/74
[2018-06-02 17:00] VITALS: BP 117/67
[2018-06-02 19:12] VITALS: BP 119/81
== END 2018-06-02 19:40 | disposition hospice, home (50) | DRG 189 ==
LOC: EDBD 11:24 → ER 11:24 → TELE 14:33 → TELE-CENTR 16:50
PROVIDERS: ADMIT Internal Medicine; ATTEND Internal Medicine
DX: J96.20 Acute and chronic respiratory failure, unspecified whether with hypoxia or hypercapnia (principal); I50.43 Acute on chronic combined systolic (congestive) and diastolic (congestive) heart failure; J44.1 Chronic obstructive pulmonary disease with (acute) exacerbation; E44.0 Moderate protein-calorie malnutrition; D64.9 Anemia, unspecified; E78.5 Hyperlipidemia, unspecified; E11.9 Type 2 diabetes mellitus without complications; I11.0 Hypertensive heart disease with heart failure; I48.91 Unspecified atrial fibrillation; K21.9 Gastro-esophageal reflux disease without esophagitis; J84.10 Pulmonary fibrosis, unspecified; L89.90 Pressure ulcer of unspecified site, unspecified stage; Z86.73 Personal history of transient ischemic attack (TIA), and cerebral infarction without residual deficits; Z90.49 Acquired absence of other specified parts of digestive tract
CPT/HCPCS: 36415; 36600; 51702; 71045; 80053; 81001; 82550; 82805; 82962; 83036; 83605; 83880; 84484; 85025; 85610; 85730; 87040; 87081; 87804; 93005; 94640; 96365; 96366; 96372; 96375; G0378; J1815; J2405; J2543; J3490